=== PATIENT | male | born 1950 | race Caucasian/White ===

== ENCOUNTER → 2017-02-23 | Outpatient (CLI) | payer OTHER ==
[~2017-02-23] MED LIST: ANDROGEL5 GM TD; ASPIR 8181 MG PO; ATENOLOL 50MG T50 M1 PO; CARDIZEM30 MG PO; CLONIDINE0.1 PO; EFFIENT10 MG PO; ELIQUIS5 MG PO; FARXIGA5 MG PO; FISH OIL 1,001000 MG PO; GLUCOTROL5 MG PO; IRON325 PO; LEVAQUIN 500 M500 M3 PO; LIPITOR10 MG PO; LISINOPRIL10 MG PO; MELATONIN3 MG PO; METFORMIN HCL500 MG PO; PACERONE 200 M200 M1 PO; PLAVIX 75 MG TA75 M1 PO; PRILOSEC 20 MG20 MG PO; PROTONIX40 M1 PO; TRAZODONE HCL50 MG PO; TYLENOL325 MG PO; XARELTO10 MG PO
[2017-02-23 12:21] LABS: ABSOLUTE BASOPHILS 0.1 thou/uL (0.0-0.2); ABSOLUTE EOSINOPHILS 0.2 thou/uL (0.0-0.7); ABSOLUTE LYMPHOCYTES 1.3 thou/uL (0.8-5.3); ABSOLUTE MONOCYTES 0.6 thou/uL (0.0-1.2); ABSOLUTE NEUTROPHILS 2.6 thou/uL (1.6-8.1); BASOPHILS 1.3 %; EOSINOPHILS 4.5 %; HEMATOCRIT 35.9 % (42.0-52.0); HEMOGLOBIN 12.2 gm/dL (14.0-18.0); LYMPHOCYTES 26.7 %; MCH 30.1 pg (26.0-34.0); MCHC 33.9 g/dL (28.0-37.0); MCV 88.7 fL (80.0-100.0); MONOCYTES 12.6 %; MPV 7.7 fl. (7.2-11.1); NUCLEATED RBCS 0 /100WBC; PLATELET COUNT* 147 thou/uL (150-400); POLYS 54.9 %; RBC 4.04 mil/uL (4.50-6.00); WBC 4.7 thou/uL (4.0-11.0)
[2017-02-23 12:32] LABS: ALBUMIN 3.5 g/dL (3.4-5.0); CREATININE 0.9 mg/dL (0.6-1.3); POTASSIUM 4.4 mmol/L (3.5-5.1); TOTAL BILIRUBIN 0.5 mg/dL (<0.1-1.0); TOTAL PROTEIN 6.8 g/dL (6.4-8.2)
[2017-02-23 13:23] LABS: ESR (SEDRATE) 25 mm/hr (0-20)
== END ==
LOC: M.LAB 12:04
PROVIDERS: Internal Medicine Gastroenterology
DX: R79.89 Other specified abnormal findings of blood chemistry (principal); F10.10 Alcohol abuse, uncomplicated; I65.23 Occlusion and stenosis of bilateral carotid arteries; I48.0 Paroxysmal atrial fibrillation; E11.9 Type 2 diabetes mellitus without complications; I10 Essential (primary) hypertension; I25.10 Atherosclerotic heart disease of native coronary artery without angina pectoris; E78.00 Pure hypercholesterolemia, unspecified; E66.3 Overweight; Z68.33 Body mass index [BMI] 33.0-33.9, adult; Z86.010 Personal history of colon polyps

== ENCOUNTER 2017-05-06 13:04 | Inpatient (IN) | payer OTHER ==
[~2017-05-06] VITALS: Ht 165.1 cm; Wt 95.3 kg
[~2017-05-06 13:04] MED LIST changes: -CARDIZEM30 MG PO; -ELIQUIS5 MG PO; -FARXIGA5 MG PO; -GLUCOTROL5 MG PO; -LEVAQUIN 500 M500 M3 PO; -PACERONE 200 M200 M1 PO; -TYLENOL325 MG PO; -XARELTO10 MG PO
[2017-05-06 13:06] VITALS: BP 0/0
--- NOTE | 2017-05-06 13:26 | NUR ---
ACCUCHECK = 249. NOTIFIED RN
[2017-05-06 13:44] LABS: PCO2 32.2 mmHg (35.0-45.0); PO2 99.4 mmHg (75.0-100.0)
[2017-05-06 13:45] LABS: HCO3 7.3 mmol/L (22.0-26.0); pH 6.975 (7.340-7.450)
[2017-05-06 13:55] LABS: ABSOLUTE BASOPHILS 0.2 thou/uL (0.0-0.2); ABSOLUTE EOSINOPHILS 0.1 thou/uL (0.0-0.7); ABSOLUTE LYMPHOCYTES 2.9 thou/uL (0.8-5.3); ABSOLUTE MONOCYTES 1.2 thou/uL (0.0-1.2); ABSOLUTE NEUTROPHILS 10.1 thou/uL (1.6-8.1); BASOPHILS 1.1 %; EOSINOPHILS 0.5 %; HEMATOCRIT 27.3 % (42.0-52.0); HEMOGLOBIN 8.1 gm/dL (14.0-18.0); LYMPHOCYTES 19.9 %; MCH 29.2 pg (26.0-34.0); MCHC 29.5 g/dL (28.0-37.0); MCV 99.2 fL (80.0-100.0); MONOCYTES 8.2 %; NUCLEATED RBCS 0 /100WBC; PLATELET COUNT* 196 thou/uL (150-400); POLYS 70.3 %; RBC 2.76 mil/uL (4.50-6.00); WBC 14.3 thou/uL (4.0-11.0)
[2017-05-06 14:03] LABS: APTT 34.7 Seconds (25.0-31.3); INR 1.8; PROTIME 17.4 Seconds (9.20-11.50)
[2017-05-06 14:05] LABS: ANION GAP 27 mmol/L (7-16); BUN 85 mg/dL (7-18); CALCIUM 7.7 mg/dL (8.5-10.1); CHLORIDE 101 mmol/L (98-107); CREATININE 4.2 mg/dL (0.6-1.3); GLUCOSE 278 mg/dL (70-99); POTASSIUM 5.2 mmol/L (3.5-5.1); SODIUM 137 mmol/L (136-145)
[2017-05-06 14:08] LABS: CO2 9 mmol/L (21-32)
[2017-05-06 14:11] LABS: ALBUMIN 2.7 g/dL (3.4-5.0); ALKALINE PHOSPHATASE 150 U/L (46-116); CHOLESTEROL 77 mg/dL (<200); HDL CHOLESTEROL 18 mg/dL (>40); LDL CHOLESTEROL 42 mg/dL (<100); MAGNESIUM 1.9 mg/dL (1.8-2.4); SGOT 57 U/L (15-37); SGPT 108 U/L (30-65); TC:HDL 4.3 Ratio (Not establshd); TOTAL BILIRUBIN 1.3 mg/dL (<0.1-1.0); TOTAL PROTEIN 5.4 g/dL (6.4-8.2); TRIGLYCERIDE 88 mg/dL (<150); TROPONIN-I LEVEL <0.06 ng/mL (<0.06); VLDL 18 mg/dL (<40)
--- NOTE | 2017-05-06 14:12 | NUR ---
SEE CODE BLUE SHEET FOR ACCURATE IV ADMINISTRATION TIMES, NURSING INTERVENTIONS, VITAL SIGNS, PLACEMENT OF CATHETER, OG TUBE, RESTRAINTS, ET TUBE, IV/IO SITES. PT LEFT TO GO TO [employer] [facility] [employer] AT 1408, ESCORTED BY 3 RN'S. FAMILY NOTIFIED, AND ALL PAPERWORK WENT W/ PT. PT ON VENTILATOR.
[2017-05-06 14:13] LABS: SERUM ASSESSMENT Clear
[2017-05-06 14:16] VITALS: BP 112/37
--- NOTE | 2017-05-06 14:18 | NUR ---
VERBAL ORDERS FOR MORPHINE 2 MG WERE GIVEN TO ADMINISTER TO PT. AFTER ADMINISTRATION OF MORPHINE FAMILY STATED THE PT IS ALLERGIC TO MORPHINE. PT STATES THAT THE ALLERGIC REACTION IS THAT THE PT IS HARD TO WAKE UP. PHYSICIAN NOTIFIED.
[2017-05-06 14:53] LABS: BE -17.6 mmol/L (-2 to +3)
[2017-05-06 14:55] LABS: pH 7.263 (7.340-7.450)
[2017-05-06 14:56] LABS: HCO3 7.6 mmol/L (22.0-26.0); PCO2 17.3 mmHg (35.0-45.0); PO2 207.5 mmHg (75.0-100.0)
[2017-05-06 16:13] LABS: BE -12.7 mmol/L (-2 to +3); HCO3 12.1 mmol/L (22.0-26.0); PCO2 24.2 mmHg (35.0-45.0); PO2 173.5 mmHg (75.0-100.0); pH 7.316 (7.340-7.450)
--- NOTE | 2017-05-06 16:25 | NUR ---
NOTIFIED [facility]. RECEIVED ORDERS TO EXTUBATE PT. TITRATE TO NC KEEP NC >90. KEEP HOB AT 30 DEGREES.
[2017-05-06 16:55] LABS: URINE BILIRUBIN NEGATIVE (Negative); URINE BLOOD 3+ (Negative); URINE CLARITY CLEAR; URINE COLOR YELLOW; URINE GLUCOSE-RANDOM NEGATIVE (Negative); URINE KETONES NEGATIVE (Negative); URINE LEUKOCYTES-REFLEX TRACE (Negative); URINE NITRITE-REFLEX NEGATIVE (Negative); URINE PROTEIN 3+ (Negative); URINE SPECIFIC GRAVITY >= 1.030 (1.005-1.030); URINE UROBILINOGEN 0.2 E.U./dl (0.2-1.0)
[2017-05-06 16:58] LABS: BACTERIA-REFLEX None Seen /HPF (None Seen); CASTS None Seen /LPF (None Seen); CRYSTALS None Seen /LPF (None Seen); SQUAMOUS 4-10 Moderate /LPF (0-3); URINE RBC 3-10 Few /HPF (0-2); URINE WBC-REFLEX 0-5 Rare /HPF (0-5)
--- NOTE | 2017-05-06 18:00 | NUR ---
PT PASSED SWALLOW TEST. PT PLACED ON CLEARS AND ADVANCE TOLERATED. BP'S STABLE. MAP >60. PT ALERT TO PERSON, PLACE, AND TIME. PT CONFUSED. FORGETFUL. PULLING AT CORDS, RE-DIRECTABLE. URINE AND MRSA SAMPLE COLLECTED AND SENT TO PHARMACY. CRITICAL LACTIC CALLED TO NO ORDERS RECEIVED.
[2017-05-06 19:55] LABS: URINE POTASSIUM-RANDOM 66.1 mmol/L
[2017-05-06 20:15] VITALS: BP 98/73
[2017-05-06 21:15] VITALS: BP 112/43; BP 98/73
--- NOTE | 2017-05-06 21:30 | NUR ---
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 WILL CONTINUE TO MONITOR.
[2017-05-06 22:15] VITALS: BP 97/43
[2017-05-06 23:00] VITALS: BP 103/49
[2017-05-07] VITALS (18 sets, daily range): BP systolic 88–134; BP diastolic 35–69
--- NOTE | 2017-05-07 00:02 | NUR ---
REPORT GIVEN TO STAR AT THIS TIME, PT AWAKE, ALERT, CONVERSATIVE, DENIES PAIN OR DISCOMFORT, REMAINS NSR TRACING CAPTAIN/CHECK AIRMAN, MIDLINE DRESSING ABD REMAINS C/D/I, DENIES NEEDS AT PRESENT TIME, CALL LIGHT REMAINS IN REACH, BED REMAINS IN LOW AND LOCKED POSITON.
--- NOTE | 2017-05-07 01:16 | NUR ---
PT REMAINS ON CLEAR LIQUID DIET, ONLY CONSUMED SIPS H20 AT HS, DECREASED INSULIN SQ SS FROM MODERATE DOSE TO LOW DOSE REGIME, FSBS 212 AT THIS TIME.
[2017-05-07 04:31] LABS: HEMATOCRIT 23.5 % (42.0-52.0); HEMOGLOBIN 7.7 gm/dL (14.0-18.0); MCH 28.7 pg (26.0-34.0); MCHC 32.7 g/dL (28.0-37.0); NUCLEATED RBCS 0 /100WBC; PLATELET COUNT* 165 thou/uL (150-400); RBC 2.67 mil/uL (4.50-6.00); WBC 11.1 thou/uL (4.0-11.0)
[2017-05-07 04:46] LABS: ALBUMIN 2.6 g/dL (3.4-5.0); CALCIUM 7.6 mg/dL (8.5-10.1); MAGNESIUM 1.4 mg/dL (1.8-2.4); POTASSIUM 4.9 mmol/L (3.5-5.1); TOTAL BILIRUBIN 1.1 mg/dL (<0.1-1.0); TOTAL PROTEIN 5.2 g/dL (6.4-8.2)
[2017-05-07 04:49] LABS: CREATININE 3.2 mg/dL (0.6-1.3)
[2017-05-07 04:57] LABS: MCV 87.8 fL (80.0-100.0)
[2017-05-07 06:08] LABS: ABSOLUTE LYMPHOCYTES 0.6 thou/uL (0.8-5.3); ABSOLUTE MONOCYTES 0.2 thou/uL (0.0-1.2); ABSOLUTE NEUTROPHILS 10.3 thou/uL (1.6-8.1); ANISOCYTOSIS 1+; HYPOCHROMASIA 1+; PLATELET ESTIMATE ADEQUATE; POLYCHROMASIA Occasional
[2017-05-07 06:09] LABS: POIKILOCYTOSIS 1+
[2017-05-07 06:50] LABS: BE -2.4 mmol/L (-2 to +3); HCO3 20.3 mmol/L (22.0-26.0); PO2 94.6 mmHg (75.0-100.0); pH 7.494 (7.340-7.450)
--- NOTE | 2017-05-07 06:50 | NUR ---
PROGRESSING TOWARDS GOALS, REMAINS ALERT AND ORIENTED TO PERSON/PLACE WITH INTERMITTENT CONFUSION TO TIME AND SITUATION, AND FORGETFUL, REMAINS ON 5L OXYGEN PER NC WITHOUT S/S OF RESPIRATORY DISTRESS, VPACED 100 PERCENT CAPTURE, REMAINS ON TEMPORARY PACEMAKER BPM-70 WITH MA 5, DENIES PAIN OR DISCOMFORT, NS 125CC/HR VIA INFUSION PUMP PER ORDER, FREQUENT REMINDERS NEEDED TO KEEP RIGHT LEG STRAIGHT PER TEMPORARY PACEMAKER PROTOCOL, MUMBLED SPEECH AT TIMES, AWAKE, ALERT, WATCHING TV THIS AM, CALL LIGHT REMAINS IN REACH, BED REMAINS IN LOW AND LOCKED POSITION.
--- NOTE | 2017-05-07 10:31 | NUR ---
PATIENT DENIES PAIN OR SOA. PACER DCD ARTERIAL AND VENOUS SHEATHS REMOVED. TYAKING PO WELL. PATIENT SOMEWHAT LETHARGIC NSR BP WNL.
--- NOTE | 2017-05-07 11:54 | CARD ---
[address] [address] CARDIAC CATH REPORT Name: ANUP GALVEZ Room: [address] IN ..#: [id number] Admission: 05/06/17 Attend Phys: Mihir Rm MD Discharge: Date of : 46 Report #: [id number] THIS REPORT FOR: //name// APPROVED REPORT Study performed: 05/06/2017 13:43:55 Patient Status: ED Room #: Event Personnel: Gerald Queen Recreational Therapy Aide, Kezia Patrick RN Monitor,Mihir Esparza Evinger, Makenzie RN RN Exam: Insertion of Temporary Pacemaker Indications: Sick Sinus Syndrome/Tachy Andi Syndrome The patient is a 66 year-old male with a history of Syncope. Procedure The patient underwent informed consent. We discussed the details of the procedure including the risks, which include, but not limited to bleeding, infection, vascular damage, cardiac perforation, and pneumothorax. The patient was brought urgently from the ED after syncope and a sinus pause. The patient had been intubated and was being externally paced. A 6 cymraes sheath was placed in the right femoral artery and vein. A 5 cymraes pacing lead was inserted through the venous sheath and guided into the right ventricular apex. Electrode Parameters Ventricular Threshold: 1.0 mA Temporary pacer was set at rate 80bpm. Complications The patient tolerated the procedure well and there were no complications associated with the procedure. Findings Specimens Removed: No Estimated Blood Loss: 10cc Conclusion 1. placement of an arterial sheath in the right [place] [address] CARDIAC CATH REPORT Name: LENNYANUP Yosef Room: [address] IN [facility].#: [id number] Admission: 05/06/17 Attend Phys: Mihir Rm MD Discharge: Date of : 46 Report #: [id number] 2. placement of a temporary pacing lead through the right femoral vein <ELECTRONICALLY SIGNED> By: Gerald Queen MD, FACC 05/07/17 1154 1154 [id number] nena Queen MD, FACC /INF
--- NOTE | 2017-05-07 12:16 | EKG ---
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 : 1950 Requested By: Oscar Smith Order Number: [id number] MD: Gerald Queen Measurements Intervals [place] Rate: 86 P: MD: QRS: 104 QRSD: 183 T: -47 QT: 488 QTc: 584 Interpretive Statements accelerated junctional rhythm Ventricular premature complex RBBB and LPFB ST depr, consider ischemia, inferior leads Compared to ECG 09/25/2015 07:41:12 Ventricular premature complex(es) now present Left posterior fascicular block now present Right bundle-branch block now present Possible ischemia still present Electronically Signed On 05-07-2017 12:15:58 CDT by Gerald Queen [email or web address] <ELECTRONICALLY SIGNED> By: Gerald Queen MD, FACC 05/07/17 1215 1313 1313 Gerald Queen MD, FACC /EPI
[2017-05-07 13:41] LABS: SMEAR FOR EOSINOPHILS Rare per HPF
--- NOTE | 2017-05-07 14:37 | 2DMMODE ---
[place] [address] 2 D/M-MODE ECHOCARDIOGRAM Name: ANUP GALVEZ Room: [address] IN [facility]#: [id number] Admission: 05/06/17 Attend Phys: Mihir Rm, Discharge: Date of : 46 Date of Service: 05/07/17 1437 Report #: [id number] THIS REPORT FOR: //name// APPROVED REPORT Study performed: 05/07/2017 11:20:24 EXAM: Comprehensive 2D, Doppler, and color-flow Echocardiogram Patient Location: In-Patient Room #: [facility] BSA: 2.13 HR: 73 bpm BP: 121/35 mmHg Other Information Study Quality: Technically Difficult Indications S/P Aortic Valve replacement 2D Dimensions LVEF(%): 58.25 (>50%) IVSd: 13.97 (7-11mm) LVOT Diam: 20.28 (18-24mm) LVDd: 41.85 mm PWd: 13.48 (7-11mm) Ascending Ao: 25.11 (22-36mm) LVDs: 29.11 (25-40mm) Aortic Root: 22.69 mm Traylor's LVEF: 58.25 % Volumes Left Atrial Volume (Systole) LA ESV Index: 27.50 mL/m2 Aortic Valve AoV Peak Adrian.: 2.22 m/s AO Peak Gr.: 19.79 mmHg LVOT Max P.56 mmHg AO Mean Gr.: 12.00 mmHg LVOT Mean P.45 mmHg LVOT Max V: 1.07 m/s AO V2 VTI: 36.65 cm LVOT Mean V: 0.74 m/s ONELIA (VTI): 1.71 cm2 LVOT V1 VTI: 19.36 cm Mitral Valve E/A Ratio: 1.83 MV Decel. Time: 192.69 [place] [address] 2 D/M-MODE ECHOCARDIOGRAM Name: ANUP GALVEZ Room: [address] IN ..#: [id number] Admission: 05/06/17 Attend Phys: Mihir Rm, Discharge: Date of : 46 Date of Service: 05/07/17 1437 Report #: [id number] MV E Max Adrian.: 1.15 m/s MV PHT: 55.88 ms MVA (PHT): 3.94 cm2 TDI E/Lateral E': 12.78 E/Medial E': 16.43 Medial E' Adrian.: 0.07 m/s Lateral E' Adrian.: 0.09 m/s Pulmonary Valve PV Peak Adrian.: 1.62 m/s PV Peak Gr.: 10.53 mmHg Tricuspid Valve TR Peak Gr.: 31.43 mmHg RVSP: 36.43 mmHg Left Ventricle The left ventricle is normal size. There is normal LV segmental wall motion. Mild concentric left ventricular hypertrophy. Left ventricular systolic function is normal. The left ventricular ejection fraction is within the normal range. LVEF is 55-60%. The left ventricular diastolic function is normal. Right Ventricle The right ventricle is normal size. The right ventricular systolic function is normal. Atria The left atrium size is normal. The right atrium size is normal. Aortic Valve Bioprosthetic aortic valve is present. No aortic regurgitation is present. There is no aortic valvular stenosis. Mitral Valve There is mild mitral annular calcification. Mild mitral regurgitation. No evidence of mitral valve stenosis. Tricuspid Valve The tricuspid valve is normal in structure. Trace tricuspid regurgitation. estimated pa pressure 40 mm Hg Pulmonic Valve The pulmonary valve is normal in structure. There is no pulmonic [place] [address] 2 D/M-MODE ECHOCARDIOGRAM Name: ANUP GALVEZ Room: [address] IN [facility]#: [id number] Admission: 05/06/17 Attend Phys: Mihir Rm, Discharge: Date of : 46 Date of Service: 05/07/17 1437 Report #: [id number] Great Vessels The aortic root is normal in size. IVC is normal in size and collapses with >50% inspiration Pericardium There is no pericardial effusion. <Conclusion> Mild concentric left ventricular hypertrophy. LVEF is 55-60%. Bioprosthetic aortic valve is present. Mild mitral regurgitation. Trace tricuspid regurgitation. estimated pa pressure 40 mm Hg <ELECTRONICALLY SIGNED> By: Gerald Queen MD, FACC 05/07/17 1437 1437 143 Gerald Queen MD, FACC /INF
--- NOTE | 2017-05-07 17:47 | CON ---
[facility] [address] [place] [address] CONSULTATION Name: LENNYANUP Yosef Room: [address] IN M.R.#: [id number] Admission: 05/06/17 Attend Phys: Mihir Rm MD Discharge: Date of : 46 Report #: [id number] THIS REPORT FOR: //name// CC: Mihir Zhao MD DATE OF SERVICE: 05/06/2017 TYPE OF REPORT: Cardiology consultation. PRIMARY CARE PHYSICIAN: Dash Zhao M.D. at [place], [place]. HISTORY OF PRESENT ILLNESS: The patient is a 66-year-old white male who I was asked to see in the hospital today after he apparently suffered a cardiac arrest. The history is obtained from some old records as well as the who was present. The patient is currently intubated. The patient has a long history of heart disease. He has been cared for by Dr. Nicholson for years. He has had multiple coronary artery stents placed. Apparently, his first stent was actually placed at [facility]. He has had many stents here at [facility]. His last stent was apparently several years ago. He continues to follow Dr. Nicholson who now practices at [facility]. He does have a history of aortic stenosis and had an echocardiogram here at [facility] in August 2016 that showed a normal ejection fraction with moderate aortic stenosis. Recently, the patient has been having chest pain and shortness of breath. He underwent a repeat cardiac catheterization in [facility]. Dr. Nicholson recommended aortic valve replacement and coronary artery bypass surgery. Apparently on April 23, he underwent aortic valve replacement using a tissue valve and 2-vessel bypass surgery using vein graft at [facility]. His postoperative course apparently was complicated by renal failure and he required temporary dialysis. The patient does have a history of atrial flutter and apparently was sent home with a pvc monitor. Recently, he has noticed palpitations and his heart racing. The patient was finally discharged from [facility] 4 days ago. According to family members, since he was discharged, he has been very weak. He has also had loose stools. His blood sugars have been high. During the night, the family got him up to the bathroom this morning. He was so weak they could even get him to the bathroom and had lowered him to the ground in the living room. The ambulance was called and he was brought here to [facility]. The patient apparently denied any significant chest pain, shortness of breath and he did not have syncope. When paramedics arrived, he was bradycardic with a heart rate in the 30s. While transferring him to the ambulance, the patient apparently went asystolic and CPR was initiated. He was given epinephrine. When arrived to the Emergency Room here at [facility], CPR was in progress. In the Emergency Room here, he was given epinephrine and atropine. He was intubated to protect his airway. A rhythm was obtained and the patient then awakened. However, he was having bradycardia and [place] [address] CONSULTATION Name: ANUP GALVEZ Room: [address] IN [facility]#: [id number] Admission: 05/06/17 Attend Phys: Mihir Rm MD Discharge: Date of : 46 Report #: [id number] was asked to see him on an emergent basis. The family denied any significant fever, cough or bleeding since he was discharged 5 days ago. PAST MEDICAL HISTORY: Otherwise significant for repair of a ruptured quadriceps muscle and ankle fracture. He has had a history of GI bleeding, which required a transfusion in the past. He has had colon polyps removed. He has had a previous peptic ulcer. He has a history of hypertension, diabetes and history of atrial flutter. MEDICATIONS: The patient was discharged 4 days ago from [facility] on amiodarone 200 mg twice day, which is a new medication. He is on diltiazem CD 60 mg 4 times a day, potassium 10 mEq twice a day and Lasix 20 mg twice a day. He was recently started on metoprolol 100 mg twice a day, aspirin 325 mg a day, iron supplements, fish oil, glipizide, metformin, Protonix and trazodone for sleep. ALLERGIES: He has a previous intolerance to MORPHINE. FAMILY HISTORY: His father had heart disease. SOCIAL HISTORY: He is . He and his live in [place]. 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 No smoking. Has drunk alcohol heavily in the past including going to [employer]. REVIEW OF SYSTEMS: He has had no history of stroke or asthma. He does have a history of bleeding peptic ulcer in the past. He has had chronic kidney disease. No cancer. No psychiatric illness. PHYSICAL EXAMINATION: GENERAL: Revealed a middle-aged male who was lying on a stretcher. He was intubated. He was awake. VITAL SIGNS: He currently has a blood pressure of 100. He is being externally paced at 80. HEENT: Mucous members moist. He is anicteric. Conjunctivae pink. NECK: Veins are difficult to assess due to obesity. CHEST: Clear to auscultation. CARDIAC: Regular rate and rhythm. Grade 2 systolic ejection murmur. ABDOMEN: Soft. EXTREMITIES: Difficult to assess. He had wrappings on both the legs. RADIOLOGICAL DATA: His ECG when he arrived in the Emergency Room appeared to show a sinus rhythm with frequent PVCs, left posterior fascicular block and a right bundle-branch block. His chest x-ray, mild cardiomegaly, otherwise clear lung cannon, evidence of previous sternotomy and aortic valve replacement. LABORATORY DATA: Sodium 137, potassium is 5.2, BUN 85, creatinine 4.[address] [facility] [address] [place] [address] CONSULTATION Name: ANUP GALVEZ Room: [address] IN [facility]#: [id number] Admission: 05/06/17 Attend Phys: Mihir Rm MD Discharge: Date of : 46 Report #: [id number] glucose 278. SGOT 57 and his SGPT 108. Albumin 2.7. His white blood cell count is 14.3; hemoglobin 8.1 and platelet count 196,000. IMPRESSION AND RECOMMENDATIONS: 1. Cardiac arrest secondary to sinus pauses. Suspect sick-sinus syndrome. I would recommend discontinuing amiodarone, diltiazem and metoprolol. We would recommend placing temporary pacemaker. The patient will require permanent pacemaker. 2. History of atrial flutter. I would hold amiodarone at this time. 3. Recent coronary artery bypass surgery. No evidence of ischemia. We will continue an aspirin a day. 4. Recent aortic valve replacement using tissue valve. Recommend echocardiogram. 5. Diabetes. The patient has oral medications. 6. History of hypertension. The patient has been on a calcium anthony and beta anthony. 7. Previous history of alcohol abuse. 8. Previous history of gastrointestinal bleeding from peptic ulcer disease. 9. Anemia. Suspect blood loss following surgery. <ELECTRONICALLY SIGNED> By: Gerald Queen MD, FACC 05/07/17 1747 1536 1920Dawilner Queen MD, FACC /nt
--- NOTE | 2017-05-07 20:06 | NUR ---
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
--- NOTE | 2017-05-08 04:27 | NUR ---
PT RESTING QUIELTY WITH EYES CLOSED, BEGINNING SHIFT WAS NSR TRACING GROCERY SPECIALIST, NOTED HR INCREASING 120'S UP TO 150'S AFIB SUBSTAINED, AWOKE PT FOR ASSESSMENT, PT DENIED CP, DISCOMFORT, SOA, SKIN REMAINS WARM, DRY, AND INTACT, DENIED DIZZYNESS, OR PALPITATIONS, ORDERED STAT EKG, PT HR REVERTED BACK TO NSR WITH HR 70'S TO 80'S BEFORE EKG WAS OBTAINED, EKG ON HOLD AT PRESENT TIME, WILL OBTAIN FOR CHANGE IN CARDIAC RHYTHEM OR CHEST DISCOMFORT.
[2017-05-08 05:34] LABS: CALCIUM 7.9 mg/dL (8.5-10.1); POTASSIUM 4.1 mmol/L (3.5-5.1)
[2017-05-08 05:42] LABS: % SATURATION 9 % (20-39); IRON 30 ug/dL (50-175)
[2017-05-08 05:43] LABS: HEMATOCRIT 21.7 % (42.0-52.0); HEMOGLOBIN 7.2 gm/dL (14.0-18.0)
[2017-05-08 05:48] LABS: CREATININE 1.8 mg/dL (0.6-1.3)
--- NOTE | 2017-05-08 06:30 | NUR ---
REMAINS ON 2L PER NC, NO SOA OR DIFFICULTY BREATHING DURING NOC, NO FURTHER EPISODES AFIB OR RAPID HEART RATE AFTER 0400 THIS AM, DENIES PAIN OR DISCOMFORT, RESTING QUIELTY WITH EYES CLOSED MOST OF NOC, VOIDING PER URINAL, USING CALL LIGHT ADEQUATELY, CALL LIGHT REMAINS IN REACH. AWAKE, ALERT, AND CONVERSATIVE THIS AM.
[2017-05-08 07:33] VITALS: BP 128/62
--- NOTE | 2017-05-08 08:39 | NUR ---
PATIENT CARE ASSUMED AT 0700. PATIENT DENIES PAIN, NAUSEA, SOB. REFER TO ASSESSMENT AND VITALS. TRACING NSR ON ROCKET ASSEMBLY OPERATOR. DID HAVE ONE EPISODE OF INCREASED HR OVERNIGHT WHICH SPONTANEOUSLY CONVERTED BEFORE EKG COULD BE COMPLETED PER NOC NURSE. ONLY COMPLAINT THIS MORNING IS FEELING LIKE HE NEEDS TO HAVE A BOWEL MOVEMENT. REMAINS ON 2L WITH O2 SAT 100%, MAY BE TITRATED DOWN. PATIENT DOWNGRADED TO M/S TELE STATUS BY HOSPITALIST. TRANSFERED TO ROOM 309 AT 0830 BY WHEELCHAIR WITH TIMBER TREATING TANK OPERATOR. INSULIN SENT WITH PATIENT.
[2017-05-08 08:46] VITALS: BP 128/61
--- NOTE | 2017-05-08 10:51 | EKG ---
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: MYCHAL : 1950 Requested By: Gerald Queen Order Number: [id number] MD: Gerald Queen Measurements Intervals [place] Rate: 82 P: 69 SC: 167 QRS: -6 QRSD: 152 T: 172 QT: 414 QTc: 484 Interpretive Statements Sinus rhythm Left bundle branch block Compared to ECG 05/06/2017 13:13:10 Left bundle-branch block now present Accelerated junctional rhythm no longer present Ventricular premature complex(es) no longer present Left posterior fascicular block no longer present Right bundle-branch block no longer present Possible ischemia no longer present Electronically Signed On 05-08-2017 10:51:07 CDT by Gerald Queen [email or web address] <ELECTRONICALLY SIGNED> By: Gerald Queen MD, FACC 05/08/17 1051 1 1 Gerald Queen MD, FAC /EPI
[2017-05-08 12:01] VITALS: BP 132/64
[2017-05-08 15:35] VITALS: BP 127/51
--- NOTE | 2017-05-08 16:19 | NUR ---
PATIENT TRANSFERED FROM ICU, REPORT TAKEN FROM LYNDSAY, AGREE WITH ASSESMENT. ARRIVED ON FLOOR AT 0830, ORIENTED TO ROOM, ALL BELONGINGS WITH IN REACH, CALL LIGHT AT BEDSIDE. A&OX4, FORGETFUL ON 2L O2 VAI NC, IV RIGHT AC. NO C/O PAIN/N/V. UP WITH ASSISTX1 WITH A WALKER. BLE EDEMA. CONCERNED WITH PLAN OF CARE, REASSURED. NO OTHER CONCERNS AT THIS TIME. APPROPRIATE AND COOPORATIVE WITH CARE.
[2017-05-08 23:40] VITALS: BP 132/61
[2017-05-09] VITALS (12 sets, daily range): BP systolic 121–138; BP diastolic 48–70
[2017-05-09 04:54] LABS: HEMATOCRIT 21.8 % (42.0-52.0); HEMOGLOBIN 7.2 gm/dL (14.0-18.0); MCH 29.1 pg (26.0-34.0); MCHC 33.2 g/dL (28.0-37.0); MCV 87.8 fL (80.0-100.0); MPV 8.3 fl. (7.2-11.1); RBC 2.48 mil/uL (4.50-6.00); RDW-CV 16.6 % (10.5-14.5); WBC 4.9 thou/uL (4.0-11.0)
[2017-05-09 05:00] LABS: CALCIUM 8.1 mg/dL (8.5-10.1); CREATININE 1.3 mg/dL (0.6-1.3); MAGNESIUM 1.5 mg/dL (1.8-2.4); POTASSIUM 4.5 mmol/L (3.5-5.1)
--- NOTE | 2017-05-09 05:58 | NUR ---
PATIENT SLEPT PART OF THE NIGHT. IV REMAINS SALINE LOCKED. PATIENT WAS SATTING 100% ON 2L SO OXYGEN WAS PLACED TO STANDBY PATIENT HAS BEEN 97% ON ROOM AIR. PATIENT REMAINS ON SHOP DIRECTOR. PATIENT IS WANTING TO GO HOME TODAY. WILL CONTINUE TO MONITOR.
[2017-05-09 09:09] LABS: IgA 239 mg/dL (61-437); IgG 509 mg/dL (700-1600); IgM 51 mg/dL (20-172)
--- NOTE | 2017-05-09 10:06 | EKG ---
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
--- NOTE | 2017-05-09 10:33 | NUR ---
PATIENT A&OX4, ROOM AIR, IV RIGHT AC. UP WITH ASSISTX1 WITH WALKER, STEADY GAIT. NO C/O PAIN/N/V. PATIENT NOTED TO BE IN V-TACH FOR 2 MIN. ARIVED IN ROOM, PATIENT STANDING IN ROOM, ALERT, ASYMPTOMATIC, STATES WALKED AROUND ROOM. RHYTHM CHANGE TO NS WITH RVR. PHYSICIAN NOTIFIED AND AT BEDSIDE. CARDIOLOGY NOTIFIED NEW ORDERS AND TO TRANSFER PATIENT TO ICU. CALLED AND GAVE REPORT. PATIENT LEFT UNIT AT 1025, WITH ALL BELONGIGNS, NOTHING LEFT BEHIND.
--- NOTE | 2017-05-09 11:02 | NUR ---
ASSUMED CARE OF PATIENT ALERT AND ORIENTED DENIES CP OR SOA.
[2017-05-09 16:11] LABS: KAPPA FREE LIGHT CHAINS 18.3 mg/L (3.3-19.4); LAMBDA FREE LIGHT CHAINS 18.9 mg/L (5.7-26.3)
--- NOTE | 2017-05-09 18:22 | NUR ---
PATIENT REMAINS IN NSR DENIES CHEST PAIN OR SOA. TAKING PO WELL. UP IN CHAIR.
--- NOTE | 2017-05-09 22:43 | NUR ---
INITAL ASSESSMENT COMPLETED AT 1999. AT 2220 PT SITTING IN CHAIR. HEART RATE INCREASED TO 140'S. MONITOR SHOWS ATRIAL FIB. PAGED DR GRACE AND RECIEVED ORDER FOR XAVIER AMBROCIO.
--- NOTE | 2017-05-09 23:35 | NUR ---
CARDIZEM DRIP STARTED AT 5 MG/HR FOR TREATMENT OF AFIB/RVR.
[2017-05-10] VITALS (13 sets, daily range): BP systolic 109–146; BP diastolic 49–86
[2017-05-10 05:00] LABS: CALCIUM 7.9 mg/dL (8.5-10.1); CREATININE 1.1 mg/dL (0.6-1.3); MAGNESIUM 1.3 mg/dL (1.8-2.4); POTASSIUM 4.2 mmol/L (3.5-5.1)
--- NOTE | 2017-05-10 09:47 | EKG ---
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: : 1950 Requested By: Gerald Queen Order Number: [id number] MD: Gerald Queen Measurements Intervals [place] Rate: 119 P: 90 [place]: 71 QRS: -8 QRSD: 159 T: 182 QT: 398 QTc: 561 Interpretive Statements wide complex tachycardia Left bundle branch block Baseline wander in lead(s) I,II,aVR,aVF,V1,V2,V3,V4,V5 Compared to ECG 05/09/2017 08:26:44 Sinus rhythm no longer present Electronically Signed On 05-10-2017 9:47:01 CDT by Gerald Queen [email or web address] <ELECTRONICALLY SIGNED> By: Gerald Queen MD, FAC 05/10/17 0947 0752 0752 Gerald Queen MD, [facility] /EPI
--- NOTE | 2017-05-10 18:37 | NUR ---
ASSESSMENT COMPLETED REFER TO COMPUTER CHARTING. POT SANDER TRACKING AFIB/ ST/ SR THIS SHIFT. BED IN LOW AND LOCKED POSITION. CALL LIGHT WITHIN REACH. PATIENT UP WITH ASSISTANCE. PATIENT REPORTING NO PAIN, NAUSEA OR SHORTNESS OF BREATH. IV SALINE LOCKED. PATIENT ON ROOM AIR. WILL CONTINUE TO MONITOR THIS SHIFT.
--- NOTE | 2017-05-10 19:21 | NUR ---
PATIENT INTO AFIB WITH A RATE OF 120'S AT 1700. DR RODRÍGUEZ NOTIFIED WITH NEW ORDERS. PATIENT NPO FOR PROCEDURE IN AM. PATIENT HR BACK DOWN TO 70'S AT THIS TIME. WILL CONTINUE TO MONITOR.
[2017-05-11] VITALS (10 sets, daily range): BP systolic 92–139; BP diastolic 52–75
[2017-05-11 04:47] LABS: ABSOLUTE EOSINOPHILS 0.2 thou/uL (0.0-0.7); ABSOLUTE LYMPHOCYTES 0.8 thou/uL (0.8-5.3); ABSOLUTE MONOCYTES 0.7 thou/uL (0.0-1.2); ABSOLUTE NEUTROPHILS 3.5 thou/uL (1.6-8.1); BASOPHILS 0.9 %; EOSINOPHILS 3.7 %; HEMATOCRIT 22.4 % (42.0-52.0); HEMOGLOBIN 7.4 gm/dL (14.0-18.0); LYMPHOCYTES 14.5 %; MCH 29.1 pg (26.0-34.0); MCHC 33.2 g/dL (28.0-37.0); MCV 87.6 fL (80.0-100.0); MONOCYTES 13.3 %; NUCLEATED RBCS 0 /100WBC; PLATELET COUNT* 142 thou/uL (150-400); POLYS 67.6 %; RBC 2.56 mil/uL (4.50-6.00); RDW-CV 16.5 % (10.5-14.5); WBC 5.2 thou/uL (4.0-11.0)
[2017-05-11 04:52] LABS: ALBUMIN 2.5 g/dL (3.4-5.0); CREATININE 1.1 mg/dL (0.6-1.3); POTASSIUM 4.1 mmol/L (3.5-5.1); TOTAL BILIRUBIN 0.9 mg/dL (<0.1-1.0); TOTAL PROTEIN 5.4 g/dL (6.4-8.2)
--- NOTE | 2017-05-11 06:38 | NUR ---
PATIENT PROGRESSING TOWARDS GOALS. PT OFF CARDIZEM GTT. IN BBB HR 68. PT ABLE TO SLEEP OVER NIGHT. URINE OUTPUT ADEQUATE. BP ON THE SOFT SIDE ASYMPTOMATIC. REMAINS NPO. PT HAS NO VOICED CONCERNS AT THIS TIME. CALL LIGHT IN PLACE. BED TO LOWEST POSITION. WILL CONTINUE TO MONITOR CLOSELY.
[2017-05-11 08:43] LABS: CALCIUM 8.1 mg/dL (8.5-10.1); CREATININE 1.2 mg/dL (0.6-1.3); POTASSIUM 4.2 mmol/L (3.5-5.1)
--- NOTE | 2017-05-11 12:41 | NUR ---
SPOKE WITH PT YESTERDAY. PT LIVES AT HOME WITH HIS AND ADULT SON. HE HAD CABG ON 04/23 AT [place]. HE SAID THEY OFFERED HOME HEALTH AT DISCHARGE BUT HE DIDN'T THINK HE NEEDED SINCE HE LIVES WITH HIS AND SON AND NORMALLY IS INDEP AND ACTIVE. PT SAID HE JUST KEPT GETTING WEAKER AND WEAKER. PT ADMITTED WITH HR IN 30'S. CARDIOLOGY HAS BEEN ADJUSTING HIS MEDS TO KEEP HIM OUT OF A-FIB WITHOUT DROPPING HIS HEARTRATE. PT SAID HE IS FEELING OKAY, JUST FRUSTRATED WITH ALL THE TIME HE HAS BEEN IN THE HOSPITAL THIS MONTH. PT DOESN'T FEEL HE WILL HAVE ANY DISCHARGE NEEDS.
--- NOTE | 2017-05-11 13:58 | EKG ---
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1950 Requested By: Gerald Queen Order Number: [id number] Reading MD: Gerald Queen Measurements Intervals [place] Rate: 73 P: 75 FL: 172 QRS: 20 QRSD: 156 T: 191 QT: 453 QTc: 500 Interpretive Statements Sinus rhythm Left bundle branch block Baseline wander in lead(s) V1 Compared to ECG 05/10/2017 07:52:56 Wide-QRS tachycardia no longer present Electronically Signed On 05-11-2017 13:58:48 CDT by Gerald Queen [email or web address] <ELECTRONICALLY SIGNED> By: Gerald Queen MD, [facility] 05/11/17 1358 0754 [id number] Gerald Queen MD, [facility] /EPI
--- NOTE | 2017-05-11 14:12 | NUR ---
pt transfered to tele status per dr kay. report called to hong quintanilla on tele. u/s still has not done. pt tolerating diet, pt remain is sr with bbb. pt has denies any complaints of chest discomfort.
--- NOTE | 2017-05-11 14:44 | NUR ---
vss, RECIEVED REPORT OF PATIENT FROM ICU NURSE JIN, ASSESSMENT PERFORMED I AGREE WITH ASSESSMENT FINDINGS FRO ICU, FALL PRECAUTIONS IN PLACE PT IS UP AD CHARLI AND DENIES ANY PAIN, PT WANTS TO TAKE A SHOWER, PT IS TRACING SR ON THE MONITOR AND IS ON RA AND IS A&O4. WILL FOLLOW WITH PLAN OF CARE.
--- NOTE | 2017-05-11 18:27 | NUR ---
VSS, NOT STATUS CHANGE AT THIS TIME, PT UP AD CHARLI, ON RA TRACING SR ON THE MONITOR AND DENIES ANY PAIN, WILL FOLLOW WITH PLAN OF CARE,
[2017-05-12] VITALS (7 sets, daily range): BP systolic 121–148; BP diastolic 52–79
--- NOTE | 2017-05-12 07:51 | NUR ---
Pt converted from SR to Afib at 2032; HR 100s-110s at rest, 120s-130s with activity. Asymptomatic, though pt was aware that he was back in Afib. 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 VSS. Pt expressed disappointment as he aniticipates a bruno in getting discharged. Will continue to monitor.
--- NOTE | 2017-05-12 12:39 | EKG ---
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 : 1950 Requested By: Gerald Queen Order Number: [id number] Reading MD: Jean Claude Oconnor Measurements Intervals [place] Rate: 85 P: 65 NV: 175 QRS: -8 QRSD: 161 T: 164 QT: 449 QTc: 534 Interpretive Statements Sinus rhythm Left bundle branch block Compared to ECG 05/11/2017 07:54:57 No significant changes Electronically Signed On 05-12-2017 12:39:12 CDT by Jean Claude Oconnor [email or web address] <ELECTRONICALLY SIGNED> By: Jean Claude Oconnor MD, [facility] 05/12/17 1239 Jean Claude Oconnor MD, FAC /EPI
--- NOTE | 2017-05-12 18:38 | NUR ---
PT UP WALKING IN HALLWAYS, DENIES PAIN OR OTHER DISCOMFORTS. HEART RHYTHM FLUCTUATING BETWEEN SR AND AFIB THIS AM. PT GIVEN ORDERED CARDIZEM AND PT HAS REMAINED SR THIS AFTERNOON. PT DENIED SOA, PAIN OR OTHER DISCOMFORTS. PT ABLE TO MAKE NEEDS KNOWN, CALL LIGHT IN REACH
[2017-05-12 23:07] LABS: GLYCOHEMOGLOBIN (HGB A1C) 6.6 % (4.8-5.6)
[2017-05-13 04:00] VITALS: BP 109/55
[2017-05-13 04:31] LABS: ABSOLUTE BASOPHILS 0.1 thou/uL (0.0-0.2); ABSOLUTE EOSINOPHILS 0.2 thou/uL (0.0-0.7); ABSOLUTE LYMPHOCYTES 0.8 thou/uL (0.8-5.3); ABSOLUTE MONOCYTES 0.8 thou/uL (0.0-1.2); BASOPHILS 1.1 %; EOSINOPHILS 4.9 %; HEMATOCRIT 23.1 % (42.0-52.0); HEMOGLOBIN 7.6 gm/dL (14.0-18.0); MCH 29.4 pg (26.0-34.0); MCHC 32.9 g/dL (28.0-37.0); MCV 89.2 fL (80.0-100.0); MONOCYTES 16.4 %; NUCLEATED RBCS 0 /100WBC; PLATELET COUNT* 129 thou/uL (150-400); POLYS 60.6 %; RBC 2.59 mil/uL (4.50-6.00); RDW-CV 18.1 % (10.5-14.5)
[2017-05-13 04:48] LABS: CREATININE 1.2 mg/dL (0.6-1.3)
--- NOTE | 2017-05-13 05:42 | NUR ---
PT ALERT ORIETNED. UP AD CHARLI IN ROOM. DENIES CP. TELEMETRY SHOWS SR. WILL CONTINUE TO MONITOR.
[2017-05-13 08:00] VITALS: BP 130/48
[2017-05-13 14:40] VITALS: BP 130/48
[2017-05-13] MEDS ORDERED: ASPIR 8181 MG PO (14:56)
[2017-05-13] MEDS ORDERED: PACERONE 200 M200 M1 PO (14:56)
[2017-05-13] MEDS ORDERED: CARDIZEM30 MG PO (14:57)
[2017-05-13] MEDS ORDERED: GLUCOTROL5 MG PO (14:58)
[2017-05-13] MEDS ORDERED: TYLENOL325 MG PO (15:00)
[2017-05-13] MEDS ORDERED: LEVAQUIN 500 M500 M3 PO (15:01)
--- NOTE | 2017-05-13 15:26 | NUR ---
PT DISCHARGED HOME WITH , IV AND BINDERY HELPER REMOVED PRIOR TO DISCHARGE. PT AND VERBALIZED UNDERSTANDING OF DC INSTRUCTIONS. PT TOOK ALL PERSONAL BELONGINGS AND ALL PRESCRIPTIONS AT TIME OF DISCHARGE. PT VSS, NO C/O PAIN OR DISTRESS, SKIN WARM, DRY AND INTACT.
--- NOTE | 2017-05-16 13:49 | CON ---
[address] [address] CONSULTATION Name: ANUP GALVEZ Room: [address] IN ..#: [id number] Admission: 05/06/17 Attend Phys: Mihir Rm MD Discharge: 05/13/17 Date of : 46 Report #: [id number] THIS REPORT FOR: //name// CC: Mihir Hyman Bettie DATE OF SERVICE: 05/07/2017 CONSULTING PHYSICIAN: Dr. Rm. REASON FOR CONSULTATION: Acute renal failure. CHIEF COMPLAINT: The patient was feeling weak and then had a cardiac arrest. HISTORY OF PRESENT ILLNESS: This is a 66-year-old male who has past medical history of coronary artery disease; diabetes type 2, controlled as per the patient; hypertension; recent acute renal failure requiring dialysis x 1 and other medical problems who was brought in to the hospital yesterday after he had a cardiac arrest. Initially, the patient was having increasing weakness at home and so EMS was called at home and he was found to be extremely bradycardic, heart rate was in 30s. Then, he had a cardiac arrest while en route to the hospital, but he had return of spontaneous circulation within a very short period of time. I do not have the exact duration for which he was resuscitated. It seems like he had a cardiac arrest x 2 where he was initially bradycardic and then just became asystolic. He was rushed to the OR to get a temporary pacemaker placed yesterday. His creatinine was 4.2 yesterday and hence Nephrology consult was called and he was started on IV fluids and his creatinine is down to 3.2 today. He did get IV contrast load when he had a pacemaker placed. About 2 weeks ago, he had surgery for a 2-vessel coronary artery bypass and he also had aortic valve replaced, which is a bioprosthetic valve because he had aortic stenosis. After the surgery, the patient reports that he became hypotensive and he had acute kidney injury and they had to, hospital [facility], put him on dialysis, but he only required it for one time. After that, the patient states that he got better and then, he was discharged. His lisinopril, metformin was held on discharge. He has been taking Lasix at home 20 mg b.i.d. and just takes 2 baby aspirins a day at home. He reports no trouble urinating, no history of any kidney stones. His urine output has been good and he has had about 900 mL urine output in the last 24 hours. His beta blockers are on hold. His heart rate is now better. He is just currently feeling very tired, also is complaining of some constipation. REVIEW OF SYSTEMS: Currently, he feels a little bloated, he is asking for food, no trouble urinating, no shortness of breath right now, other review of systems were done and negative. He does have some weakness. PAST MEDICAL HISTORY: That includes history of coronary artery disease, has had [address] [address] CONSULTATION Name: ANUP GALVEZ Room: [address]#: [id number] Admission: 05/06/17 Attend Phys: Mihir Rm MD Discharge: 05/13/17 Date of : 46 Report #: [id number] multiple catheterizations, coronary artery bypass grafts, 2-vessel and aortic valve replacement on 04/23/2017, hypertension, diabetes type 2, history of acute renal failure, history of GI bleed, history of atrial fibrillation, obesity. PAST SURGICAL HISTORY: Which includes a CABG, AVR, multiple cardiac catheterizations, temporary dialysis need for ATN. FAMILY HISTORY: It is not relevant to the current situation, but it was reviewed. ALLERGIES: TO MORPHINE. SOCIAL HISTORY: He lives at home with his . Does use alcohol, no recreational drugs or tobacco. HOME MEDICATIONS: They were reviewed. They include Lasix, pantoprazole, melatonin, clonidine, omeprazole, ferrous sulfate, atenolol, atorvastatin, trazodone, testosterone. PHYSICAL EXAMINATION: VITAL SIGNS: Blood pressure is 121/35. Pulse ox is 96% on 2 L nasal cannula and respiratory rate is 16, pulse rate is 73, and temperature 36.7. GENERAL: He is awake and oriented, just feeling very weak and hungry. HEAD, EYES, EARS, NOSE, THROAT: Mucous membranes were dry. NECK: No JVD. CHEST: Bilateral diminished breath sounds and no crackles or wheezing. CARDIOVASCULAR: S1, S2 normal. No murmurs. ABDOMEN: Distended and obese, otherwise it is soft and bowel sounds are diminished and not tender. EXTREMITIES: He has 2+ pitting edema bilateral lower extremities; the patient states that he started having edema after his surgery on his heart 2 weeks ago. NEUROLOGICAL FUNCTION: Gross neurological function is intact. PSYCHIATRIC: Mood and affect seem to be normal. LABORATORY DATA: From 05/07/2017, WBC is 11.1, hemoglobin is 7.7, platelet count is 165. Sodium was 141, potassium was 4.9 and bicarbonate was 23 and creatinine was 3.2 and BUN was 84 and hemoglobin was 7.7 and other labs were reviewed. IMAGING: Chest x-ray, abdominal x-ray were reviewed. ASSESSMENT AND PLAN: 1. Acute renal failure, which is likely because of intravascular volume depletion, but has high risk for acute tubular necrosis: The patient had a cardiac arrest, he was also hypotensive after that. He also had contrast exposure yesterday. Creatinine so far is better 3.2 today. He has evidence of [facility] [address] [place] [address] CONSULTATION Name: ANUP GALVEZ Room: [address] IN [facility].#: [id number] Admission: 05/06/17 Attend Phys: Mihir Rm MD Discharge: 05/13/17 Date of : 46 Report #: [id number] pitting edema. Would like to decrease his fluids to half normal saline at 75 mL an hour. Hold off on any Lasix for now. Avoid nephrotoxic agents. We will also check a renal ultrasound. We need to try to get records of his prior creatinine from [facility]. I have discussed this with nursing. Now that he is hemodynamically getting better, hopefully, he will have better renal blood flow and kidneys will keep getting better and he will not develop worse contrast-induced nephropathy. 2. Coronary artery disease, status post cardiac arrest, also bradycardia: The patient has a temporary pacer now, beta blockers are on hold, Cardiology is following the patient. He seems to be doing better from cardiac standpoint now. 3. Hypotension: Blood pressure dropped overnight. Now, the blood pressure is more stable. Try to keep his mean arterial pressure more than 65. 4. Anemia: Rule out iron deficiency. We will check his iron parameters for tomorrow morning's labs. 5. Possible sick sinus syndrome: The patient has a temporary pacer and beta-blockers are on hold and Cardiology is following the patient. 6. Evidence of proteinuria and microscopic hematuria and blood in urine. Creatinine so far is getting better. Proteinuria sometimes can become positive in urine when there is some hematuria. These should be tested again as an outpatient. 7. Diabetes. Again both. His baseline creatinine was 0.9 back in 02/2017, but I do not have the most recent baseline. 8. Evidence of respiratory alkalosis with metabolic acidosis and metabolic alkalosis and lactic acidosis: Metabolic acidosis with renal dysfunction as well as he has intravascular volume depletion causing metabolic alkalosis. Lactic acidosis is getting better and that was because of hypoperfusion. We will continue to monitor this and there is no need for any bicarbonate replacement right now. Thank you for this consultation and I will continue to follow along with you. Avoid any NSAIDs, BRIAN inhibitor or ARB or more IV contrast. Case was discussed with the patient's RN and the patient. <ELECTRONICALLY SIGNED> By: Teena Padilla MD 05/16/17 1349 0932 [id number] Padilla MD /nt
== END 2017-05-13 15:25 | disposition home or self-care (01) | DRG 208 ==
LOC: M.ERS 13:04 → M.CL 13:04 → M.ICU 14:56 → M.TBA-ER 14:56 → M.ICU 15:25 → M.3W 05-08 08:35 → M.ICU 05-09 10:31 → M.2W 05-11 14:27
PROVIDERS: Emergency Medicine; Internal Medicine; Internal Medicine Cardiovascular Disease; ADMIT Internal Medicine
DX: J69.0 Pneumonitis due to inhalation of food and vomit (principal); I46.9 Cardiac arrest, cause unspecified; N17.0 Acute kidney failure with tubular necrosis; J96.20 Acute and chronic respiratory failure, unspecified whether with hypoxia or hypercapnia; E87.2 Acidosis; E87.0 Hyperosmolality and hypernatremia; I48.92 Unspecified atrial flutter; K75.89 Other specified inflammatory liver diseases; I25.10 Atherosclerotic heart disease of native coronary artery without angina pectoris; I95.9 Hypotension, unspecified; I48.91 Unspecified atrial fibrillation; E66.9 Obesity, unspecified; K21.9 Gastro-esophageal reflux disease without esophagitis; N18.2 Chronic kidney disease, stage 2 (mild); E11.22 Type 2 diabetes mellitus with diabetic chronic kidney disease; E83.42 Hypomagnesemia; I12.9 Hypertensive chronic kidney disease with stage 1 through stage 4 chronic kidney disease, or unspecified chronic kidney disease; D50.9 Iron deficiency anemia, unspecified; Z79.899 Other long term (current) drug therapy; Z95.1 Presence of aortocoronary bypass graft; Z88.5 Allergy status to narcotic agent; Z82.49 Family history of ischemic heart disease and other diseases of the circulatory system; Z68.34 Body mass index [BMI] 34.0-34.9, adult; Z95.2 Presence of prosthetic heart valve

== ENCOUNTER 2017-11-23 10:38 | Inpatient (IN) | payer OTHER ==
[~2017-11-23] VITALS: Ht 165.1 cm; Wt 94.3 kg
[~2017-11-23 10:38] MED LIST changes: +CARDIZEM30 MG PO; +GLUCOTROL5 MG PO; +LEVAQUIN 500 M500 M3 PO; +PACERONE 200 M200 M1 PO; +TYLENOL325 MG PO
[2017-11-23] MEDS ORDERED: FARXIGA5 MG PO (10:53)
[2017-11-23 11:06] LABS: ABSOLUTE BASOPHILS 0.1 thou/uL (0.0-0.2); ABSOLUTE EOSINOPHILS 0.1 thou/uL (0.0-0.7); ABSOLUTE LYMPHOCYTES 0.9 thou/uL (0.8-5.3); ABSOLUTE MONOCYTES 0.5 thou/uL (0.0-1.2); ABSOLUTE NEUTROPHILS 4.9 thou/uL (1.6-8.1); BASOPHILS 0.9 %; EOSINOPHILS 0.9 %; HEMATOCRIT 42.2 % (42.0-52.0); HEMOGLOBIN 14.3 gm/dL (14.0-18.0); LYMPHOCYTES 14.4 %; MCHC 33.8 g/dL (28.0-37.0); MCV 94.6 fL (80.0-100.0); MONOCYTES 8.4 %; MPV 8.3 fl. (7.2-11.1); NUCLEATED RBCS 0 /100WBC; PLATELET COUNT* 99 thou/uL (150-400); POLYS 75.4 %; RBC 4.46 mil/uL (4.50-6.00); RDW-CV 14.9 % (10.5-14.5); WBC 6.5 thou/uL (4.0-11.0)
[2017-11-23 11:13] LABS: ANION GAP 10 mmol/L (7-16); BUN 18 mg/dL (7-18); CALCIUM 8.5 mg/dL (8.5-10.1); CHLORIDE 101 mmol/L (98-107); CO2 26 mmol/L (21-32); CREATININE 1.1 mg/dL (0.6-1.3); GLUCOSE 176 mg/dL (70-99); SODIUM 137 mmol/L (136-145)
[2017-11-23 11:26] LABS: APTT 28.2 Seconds (25.0-31.3); INR 1.2; PROTIME 12.1 Seconds (9.20-11.50)
[2017-11-23 11:35] LABS: ALBUMIN 3.7 g/dL (3.4-5.0); ALKALINE PHOSPHATASE 131 U/L (46-116); CK-MB MASS 2.7 ng/mL (<0.5-3.6); LIPASE 520 U/L (73-393); MAGNESIUM 1.8 mg/dL (1.8-2.4); NT-PRO BRAIN NAT PEPTIDE 409 pg/mL (<300); SGOT 74 U/L (15-37); SGPT 88 U/L (30-65); TOTAL BILIRUBIN 0.9 mg/dL (<0.1-1.0); TROPONIN-I LEVEL <0.06 ng/mL (<0.06)
[2017-11-23 13:40] VITALS: BP 109/54
[2017-11-23 13:46] VITALS: BP 140/85
[2017-11-23] MEDS ORDERED: XARELTO10 MG PO (15:14)
[2017-11-23 15:38] VITALS: BP 102/67
--- NOTE | 2017-11-23 16:33 | EKG ---
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[place] [facility] [place] 1950 Requested By: Lionel Ortiz Order Number: [id number] MD: Anup Serrano Measurements Intervals [place] Rate: 118 P: 109 MS: 96 QRS: -48 QRSD: 163 T: 127 QT: 397 QTc: 557 Interpretive Statements atrial flutter with 2:d1 block Left bundle branch block Compared to ECG 11/23/2017 09:50:27 Atrial flutter persists Electronically Signed On 11-23-2017 16:32:44 CDT by Anup Serrano [email or web address] <ELECTRONICALLY SIGNED> By: Anup Serrano MD, [facility] 11/23/17 1632 1046 1046 Anup Serrano MD, [facility] /EPI
--- NOTE | 2017-11-23 16:34 | EKG ---
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[facility] [place] 1950 Requested By: Vinita Case Order Number: [id number] MD: Anup Serrano Measurements Intervals [place] Rate: 119 P: 45 CO: 47 QRS: -44 QRSD: 163 T: 131 QT: 381 QTc: 537 Interpretive Statements Atrial flutter with 2:1 block Left bundle branch block Compared to ECG 11/23/2017 09:50:27 Atrial flutter persists Electronically Signed On 11-23-2017 16:34:33 CDT by Anup Serrano [email or web address] <ELECTRONICALLY SIGNED> By: Anup Serrano MD, [facility]AC 11/23/17 1634 1211 121 Anup Serrano MD, [facility] /EPI
--- NOTE | 2017-11-23 16:37 | EKG ---
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1950 Requested By: Lionel Ortiz Order Number: [id number] MD: Anup Serrano Measurements Intervals [place] Rate: 110 P: MA: QRS: -32 QRSD: 161 T: 122 QT: 397 QTc: 538 Interpretive Statements Atrial flutter with predominant 2:1 AV block Left bundle branch block Compared to ECG 11/23/2017 09:50:27 2:1 AV block persists Electronically Signed On 11-23-2017 16:37:15 CDT by Anup Serrano [email or web address] <ELECTRONICALLY SIGNED> By: Anup Serrano MD, [facility] 11/23/17 1637 1527 1527 Anup Serrano MD, [facility] /EPI
[2017-11-23 19:45] VITALS: BP 113/73
[2017-11-24] VITALS: BP 106/76
[2017-11-24 04:00] VITALS: BP 110/69
[2017-11-24 05:05] LABS: ABSOLUTE EOSINOPHILS 0.2 thou/uL (0.0-0.7); ABSOLUTE LYMPHOCYTES 1.2 thou/uL (0.8-5.3); ABSOLUTE MONOCYTES 0.6 thou/uL (0.0-1.2); BASOPHILS 0.7 %; EOSINOPHILS 3.9 %; HEMATOCRIT 41.7 % (42.0-52.0); HEMOGLOBIN 13.9 gm/dL (14.0-18.0); LYMPHOCYTES 23.5 %; MCH 32.1 pg (26.0-34.0); MCHC 33.5 g/dL (28.0-37.0); MCV 95.9 fL (80.0-100.0); MONOCYTES 11.5 %; MPV 8.1 fl. (7.2-11.1); NUCLEATED RBCS 0 /100WBC; PLATELET COUNT* 90 thou/uL (150-400); POLYS 60.4 %; RBC 4.35 mil/uL (4.50-6.00)
[2017-11-24 05:42] LABS: CALCIUM 8.5 mg/dL (8.5-10.1); POTASSIUM 3.7 mmol/L (3.5-5.1)
[2017-11-24 08:00] VITALS: BP 109/70
[2017-11-24 12:49] VITALS: BP 96/67
[2017-11-24 16:00] VITALS: BP 128/84
[2017-11-24 20:30] VITALS: BP 117/71
[2017-11-25] VITALS: BP 108/72
[2017-11-25 04:00] VITALS: BP 115/82
[2017-11-25 05:15] LABS: ABSOLUTE EOSINOPHILS 0.2 thou/uL (0.0-0.7); ABSOLUTE LYMPHOCYTES 0.9 thou/uL (0.8-5.3); ABSOLUTE MONOCYTES 0.6 thou/uL (0.0-1.2); ABSOLUTE NEUTROPHILS 2.6 thou/uL (1.6-8.1); BASOPHILS 0.9 %; EOSINOPHILS 4.5 %; HEMATOCRIT 39.7 % (42.0-52.0); HEMOGLOBIN 13.3 gm/dL (14.0-18.0); LYMPHOCYTES 20.2 %; MCH 32.3 pg (26.0-34.0); MCHC 33.6 g/dL (28.0-37.0); MONOCYTES 13.2 %; MPV 9.2 fl. (7.2-11.1); NUCLEATED RBCS 0 /100WBC; PLATELET COUNT* 83 thou/uL (150-400); POLYS 61.2 %; RBC 4.13 mil/uL (4.50-6.00); RDW-CV 14.8 % (10.5-14.5); WBC 4.2 thou/uL (4.0-11.0)
[2017-11-25 06:24] LABS: ALBUMIN 3.2 g/dL (3.4-5.0); CALCIUM 8.3 mg/dL (8.5-10.1); CREATININE 0.8 mg/dL (0.6-1.3); POTASSIUM 3.2 mmol/L (3.5-5.1); TOTAL BILIRUBIN 0.7 mg/dL (<0.1-1.0); TOTAL PROTEIN 6.3 g/dL (6.4-8.2)
[2017-11-25 08:00] VITALS: BP 141/82
[2017-11-25 12:00] VITALS: BP 109/69
[2017-11-25 15:55] VITALS: BP 129/78
[2017-11-25 20:00] VITALS: BP 145/73
[2017-11-26] VITALS (18 sets, daily range): BP systolic 124–166; BP diastolic 66–118
[2017-11-26 05:00] LABS: ABSOLUTE EOSINOPHILS 0.2 thou/uL (0.0-0.7); ABSOLUTE LYMPHOCYTES 0.9 thou/uL (0.8-5.3); ABSOLUTE MONOCYTES 0.6 thou/uL (0.0-1.2); BASOPHILS 1.1 %; EOSINOPHILS 4.1 %; HEMATOCRIT 38.2 % (42.0-52.0); HEMOGLOBIN 12.8 gm/dL (14.0-18.0); LYMPHOCYTES 23.4 %; MCH 32.3 pg (26.0-34.0); MCHC 33.6 g/dL (28.0-37.0); MONOCYTES 16.5 %; MPV 8.8 fl. (7.2-11.1); NUCLEATED RBCS 0 /100WBC; PLATELET COUNT* 85 thou/uL (150-400); POLYS 54.9 %; RBC 3.98 mil/uL (4.50-6.00); RDW-CV 14.9 % (10.5-14.5); WBC 3.7 thou/uL (4.0-11.0)
[2017-11-26 05:29] LABS: ALBUMIN 3.2 g/dL (3.4-5.0); CREATININE 0.9 mg/dL (0.6-1.3); TOTAL BILIRUBIN 0.6 mg/dL (<0.1-1.0)
[2017-11-26 05:30] LABS: POTASSIUM 4.2 mmol/L (3.5-5.1)
--- NOTE | 2017-11-26 13:34 | TEE ---
[place] [address] TRANSESOPHAGEAL ECHOCARDIOGRAM Name: ANUP GALVEZ Room: [address] IN [facility]#: [id number] Admission: 11/23/17 Attend Phys: Santana Russ, Discharge: Date of : 46 Date of Service: 11/26/17 1333 Report #: [id number] THIS REPORT FOR: //name// APPROVED REPORT Study performed: 11/26/2017 10:31:17 EXAM: Transesophageal Echocardiogram Patient Location: CVL BSA: 2.01 HR: 115 bpm BP: 148/90 mmHg Other Information Study Quality: Good Indications Atrial Fibrillation Echo Enhancing Agent Indication: Rule Out Septal Defect Agent(s) / Amount(s) Used: Agitated Saline cc Procedure After obtaining informed consent, patient underwent transesophageal echo in the [employer]. Type of Sedation : Conscious Sedation Sedation was administered by Nicole Haley RN. Sedation was achieved intravenously with: Transesophageal probe was inserted and advanced into esophagus without difficulty by Gerald Queen MD, [facility]. Echo enhancement indication: R/O Septal defect. Echo enhancement agent administered: Agitated Saline The TENZIN was performed without complications. Synchronized Cardioversion attempted: Successful Synchronized Cardioversion acheived with 200 Joules after one attempt(s). Rhythm following Synchronized Cardioversion: Normal Sinus Rhythm Throughout the procedure, the blood pressure, pulse oximetry, cardiac rhythm, and rate were monitored. The patient tolerated the procedure without adverse effects. Recovery from conscious sedation was uneventful and vital signs were stable. Left Ventricle [place] [id number] TRANSESOPHAGEAL ECHOCARDIOGRAM Name: ANUP GALVEZ Room: [address]#: [id number] Admission: 11/23/17 Attend Phys: Santana Russ, Discharge: Date of : 46 Date of Service: 11/26/17 1333 Report #: [id number] The left ventricle is normal size. There is normal left ventricular wall thickness. The left ventricular systolic function is normal. The left ventricular ejection fraction is within the normal range. LVEF is 55%. Right Ventricle The right ventricle is normal size. The right ventricular systolic function is normal. Atria The left atrium size is normal. Injection of bubbles documented no interatrial shunt. Only a small remanent of a left atrial appendage was noted suggesting the appendage was removed at the time of surgery The right atrium size is normal. Aortic Valve Bioprosthetic aortic valve is present. No aortic regurgitation is present. There is no aortic valvular stenosis. Mitral Valve The mitral valve is normal in structure. Mild mitral regurgitation. No evidence of mitral valve stenosis. Tricuspid Valve The tricuspid valve is normal in structure. Mild tricuspid regurgitation. Pulmonic Valve The pulmonary valve is normal in structure. There is no pulmonic valvular regurgitation. Great Vessels The aortic root is normal in size. Pericardium There is no pericardial effusion. <Conclusion> LVEF is 55%. Mild tricuspid regurgitation. Mild mitral regurgitation. Injection of bubbles documented no interatrial shunt. Only a small remanent of a left atrial appendage was noted suggesting the appendage was [place] [address] TRANSESOPHAGEAL ECHOCARDIOGRAM Name: NAUP GALVEZ Room: [address] IN [facility]#: [id number] Admission: 11/23/17 Attend Phys: Santana Russ, Discharge: Date of : 46 Date of Service: 11/26/171332 Report #: [id number] Bioprosthetic aortic valve is present. successful cardioversion from atrial flutter to NSR <ELECTRONICALLY SIGNED> By: Gerald Quene MD, FACC 11/26/171332 32 32 Gerald Queen MD, FACC /INF
[2017-11-27 06:26] VITALS: BP 148/81
[2017-11-27 08:14] VITALS: BP 150/70
--- NOTE | 2017-11-27 11:56 | EKG ---
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1950 Requested By: Gerald Queen Order Number: [id number] Reading MD: Jean Claude Oconnor Measurements Intervals [place] Rate: 84 P: 80 VA: 197 QRS: -31 QRSD: 171 T: 134 QT: 459 QTc: 543 Interpretive Statements Sinus rhythm Left bundle branch block Compared to ECG 11/23/2017 15:27:43 Atrial flutter no longer present 2:1 AV block no longer present Electronically Signed On 11-27-2017 11:56:09 CDT by Jean Claude Oconnor [email or web address] <ELECTRONICALLY SIGNED> By: Jean Claude Oconnor MD, [facility]ACC 11/27/17 1156 0840 0840 Jean Claude Oconnor MD, [facility] /EPI
[2017-11-27] MEDS ORDERED: ELIQUIS5 MG PO (12:12)
[2017-11-27 12:20] VITALS: BP 150/70
== END 2017-11-27 12:36 | disposition home or self-care (01) | DRG 308 ==
LOC: M.ERS 10:38 → M.2W 12:15 → M.TBA-ER 12:15 → M.2W 14:05
PROVIDERS: Family Medicine; ADMIT Internal Medicine
PROC: 5A2204Z Restoration of Cardiac Rhythm, Single (ICD-10-PCS; principal; 2017-11-26)
PROC: B24BZZ4 Ultrasonography of Heart with Aorta, Transesophageal (ICD-10-PCS; principal; 2017-11-26)
DX: I48.91 Unspecified atrial fibrillation (principal); R65.11 Systemic inflammatory response syndrome (SIRS) of non-infectious origin with acute organ dysfunction; I48.92 Unspecified atrial flutter; K70.10 Alcoholic hepatitis without ascites; I25.10 Atherosclerotic heart disease of native coronary artery without angina pectoris; E11.9 Type 2 diabetes mellitus without complications; I10 Essential (primary) hypertension; K70.30 Alcoholic cirrhosis of liver without ascites; K21.9 Gastro-esophageal reflux disease without esophagitis; D69.6 Thrombocytopenia, unspecified; F10.20 Alcohol dependence, uncomplicated; E66.9 Obesity, unspecified; Z95.1 Presence of aortocoronary bypass graft; Z79.84 Long term (current) use of oral hypoglycemic drugs; Z88.5 Allergy status to narcotic agent; Z95.5 Presence of coronary angioplasty implant and graft; Z95.2 Presence of prosthetic heart valve; Z68.34 Body mass index [BMI] 34.0-34.9, adult

== ENCOUNTER → 2018-05-10 | Outpatient (CLI) | payer OTHER ==
[~2018-05-10] MED LIST changes: +ELIQUIS5 MG PO; +FARXIGA5 MG PO; +XARELTO10 MG PO
[2018-05-10 10:56] LABS: INR 1.1; PROTIME 11.6 Seconds (9.20-11.50)
== END ==
LOC: M.ULTRA 07:30
PROVIDERS: Physician Assistant
DX: K76.0 Fatty (change of) liver, not elsewhere classified (principal); D69.6 Thrombocytopenia, unspecified; E78.89 Other lipoprotein metabolism disorders; K80.20 Calculus of gallbladder without cholecystitis without obstruction; R16.0 Hepatomegaly, not elsewhere classified

== ENCOUNTER → 2018-05-31 | Outpatient (CLI) | payer OTHER ==
[2018-05-31 14:22] LABS: ALBUMIN 3.7 g/dL (3.4-5.0); DIRECT BILIRUBIN 0.2 mg/dL (<0.1-0.3); TOTAL BILIRUBIN 0.8 mg/dL (<0.1-1.0); TOTAL PROTEIN 7.1 g/dL (6.4-8.2)
== END ==
LOC: M.LAB 13:55
PROVIDERS: Nurse Practitioner
DX: I48.0 Paroxysmal atrial fibrillation (principal); I25.10 Atherosclerotic heart disease of native coronary artery without angina pectoris; E11.9 Type 2 diabetes mellitus without complications; Z95.1 Presence of aortocoronary bypass graft; Z88.5 Allergy status to narcotic agent; Z98.890 Other specified postprocedural states

== ENCOUNTER → 2018-12-03 | Outpatient (CLI) | payer OTHER | LOC: M.RAD 10:04 | DX: I48.91 Unspecified atrial fibrillation (principal); Z88.8 Allergy status to other drugs, medicaments and biological substances ==

== ENCOUNTER 2019-04-17 11:36 | Observation (INO) | payer MEDICARE ==
[~2019-04-17] VITALS: Ht 165.1 cm; Wt 92.1 kg
--- NOTE | ~2019-04-17 | PROC ---
[address] [address] PROCEDURE REPORT Name: ANUP GALVEZ Room: [address] Vanita M.RCourtney#: [id number] Admission: 04/17/19 Attend Phys: Julián Maravilla MD Discharge: 04/17/19 Date of : 46 Report #: [id number] THIS REPORT FOR: //name// cc: Dash Avila MD, William MD ~ THIS REPORT FOR: //name// For GI report, please see the Provation report in Perceptive 7 content. By: 0613Medical Records Staff [facility] /ANTONIA
[~2019-04-17 11:36] MED LIST changes: -TOPROL XL100 MG
[2019-04-17 12:00] VITALS: BP 141/82
--- NOTE | 2019-04-17 12:39 | NUR ---
1200 PATIENT ADMITTED DIRECTLY FROM SURGERY CENTER. PLEASE SEE ADMISSION ASSESSMENT AND HISTORY
[2019-04-17] MEDS ORDERED: TOPROL XL100 MG (13:08)
[2019-04-17 14:45] VITALS: BP 126/83
--- NOTE | 2019-04-17 14:53 | NUR ---
ADENOSINE AND IV LOPRESSOR GIVEN IN ATTEMPT TO CONVERT RHYTHM. DR FERRARI IN ROOM WITH PATIENT AND PATIENT ON CRASH CART PADS WITH CONTINUOUS PULSE OXIMETRY. SEDATED PER ORDER. CARDIOVERTED TO SINUS RHYTHM WITH [address] FERRARI. SPOUSE PRESENT DURING THIS PROCEDURE.
--- NOTE | 2019-04-17 15:35 | NUR ---
TO HOLDING AREA FOR PROCEDURE
--- NOTE | 2019-04-17 16:49 | H ---
[place] [address] HISTORY AND PHYSICAL Name: ANUP GALVEZ Room: [address] M.R.#: [id number] Admission: 04/17/19 Attend Phys: Julián Maravilla MD Discharge: Date of : 46 Report #: [id number] THIS REPORT FOR: //name// cc: Dash Avila MD, William MD ~ THIS REPORT FOR: //name// CC: Gerald Queen MD [facility] Julián Zhao MD CARDIOLOGY ADMISSION HISTORY AND PHYSICAL INDICATION: Recurrent atrial flutter. HISTORY OF PRESENT ILLNESS: The patient is a very pleasant 68-year-old gentleman with history of coronary artery disease and paroxysmal atrial arrhythmias. [facility] lower [facility] procedures. He was noted by Anesthesia to be tachycardic. Therefore, the procedures were put on hold. The patient was brought in for further observation the hospital and rate control. He is asymptomatic with this. The patient has a history of paroxysmal atrial fibrillation and flutter in the past. He is currently on Eliquis and amiodarone. He has a history of some atrial fibrillation as well in the past. The patient has a history of coronary artery disease, status post 2-vessel coronary artery bypass grafting and bioprosthetic aortic valve replacement at [facility], approximately 2 years ago. He denies any chest pain, tightness or pressure. Prior to surgery, his symptom was dyspnea and shortness of breath. He has not had any dyspnea or shortness of breath. Telemetry shows a regular rate, tachycardia that I presume to be a slow atrial flutter with 2:1 conduction. PAST MEDICAL HISTORY: 1. Coronary artery disease, status post 2-vessel coronary artery bypass grafting with multiple stents prior to that. 2. Aortic valve disease, status post bioprosthetic aortic valve replacement. 3. Paroxysmal atrial fibrillation/flutter. 4. Chronic anticoagulation without bleeding problems. 5. Hypertension. 6. Mixed hyperlipidemia. 7. Type 2 diabetes mellitus. FAMILY HISTORY: Noncontributory. SOCIAL HISTORY: The patient is a lifelong nonsmoker[place] [address] HISTORY AND PHYSICAL Name: ANUP GALVEZ Room: [address]#: [id number] Admission: 04/17/19 Attend Phys: Julián Maravilla MD Discharge: Date of : 46 Report #: [id number]. ALLERGIES: MORPHINE. CURRENT MEDICATIONS: Amiodarone 200 mg daily, Eliquis 5 mg b.i.d., Prevagen 10 mg weekly, Lipitor 10 mg nightly, Farxiga 10 mg q.a.m., iron sulfate 325 mg daily, glipizide 5 mg daily, Xalatan eye drops both eyes nightly, lisinopril 5 mg daily, magnesium oxide 250 mg every week, melatonin 3 mg at bedtime p.r.n., metoprolol succinate 50 mg daily, multivitamin one tablet daily, Protonix 40 mg daily, probiotic one tablet daily, testosterone gel topically daily, trazodone 50 mg nightly. REVIEW OF SYSTEMS: Positive for some musculoskeletal and joint pain. Mild dyspnea on exertion. No chest pain, no lightheadedness, no dizziness. He denies any bleeding problems. Otherwise, 14-point review of systems unremarkable. PHYSICAL EXAMINATION: VITAL SIGNS: Stable. Blood pressure was 136/72, pulse is irregular and 118 beats per minute. GENERAL: This is a moderately obese, pleasant white male, in no distress. Mood and affect appropriate. HEENT: Extraocular muscles intact. Mucous membranes are moist. NECK: Shows no jugular venous distention. There are no carotid bruits. CHEST: Reveals clear lung cannon without wheezes, rales or rhonchi. CARDIOVASCULAR: Reveals a tachycardic rate with a regular rhythm. I do not appreciate gallop or murmur. ABDOMEN: Reveals a protuberant abdomen, soft and nontender. Bowel sounds present. EXTREMITIES: Shows no edema. Peripheral pulses are 2+ and easily palpable. SKIN: Warm and dry. IMPRESSION AND RECOMMENDATIONS: 1. Recurrent atrial flutter. Plan adjustment to medications and possible cardioversion if he fails to convert. 2. Coronary artery disease, presently stable. Continue current regimen as outlined above. 3. Hyperlipidemia. Continue atorvastatin at current dose. 4. History of hypertension. Blood pressure adequately controlled. 5. Type 2 diabetes mellitus. Continue diabetes regimen outlined above. 6. Gastrointestinal procedure is scheduled. We will attempt adequate rate control prior to resuming the schedule of GI procedures. <ELECTRONICALLY SIGNED> By: Julián Maravilla MD, FACC 04/17/19 1649 1502 1537Micmike Maravilla MD, FACC /nt
[2019-04-17 18:30] VITALS: BP 108/67
[2019-04-17 18:32] VITALS: BP 126/83
--- NOTE | 2019-04-17 18:41 | NUR ---
1820 RECEIVED BACK ROM PACU. PT IN SINUS RHYTHM WITH BBB. PT WILL DISCHARGE TONIGHT
--- NOTE | 2019-04-17 19:15 | NUR ---
DISCHARGED HOME WITH SPOUSE
--- NOTE | 2019-04-21 14:07 | PATH ---
[address] [address] PATHOLOGY RPT PROCEDURE Name: ANUP GALVEZ Room: [address] Vanita Hawthorne#: [id number] Admission: 04/17/19 Date of : 46 Discharge: 04/17/19 Report #: [id number] Path Case #: [id number] [facility] Accession Number: [id number] . 01 Material submitted: . PART A: esophagus - BIOPSY OF DISTAL ESOPHAGUS. Modifiers: distal PART B: stomach - GASTRIC POLYP IN CARDIA PART C: colon - TRANSVERSE COLON POLYP. Modifiers: transverse PART D: sigmoid colon - SIGMOID COLON POLYPS . 01 Clinical history: . A. Rule out dysplasia . 02 Diagnosis: A. Biopsy of distal esophagus: - Benign esophageal and gastric/columnar types mucosa with moderate chronic inflammation compatible with reflux, negative for goblet cells/diagnostic Shaffer's metaplasia and dysplasia. . B. Gastric polyp in cardia: - Hyperplastic gastric polyp, negative for dysplasia/adenomatous change. . C. Transverse colon polyp: - Tubular adenoma, negative for high-grade dysplasia. . D. Sigmoid colon polyps: - One fragment of hyperplastic polyp and multiple fragments of tubular adenoma(s), negative for high-grade dysplasia. . (AYESHA:devora; 04/21/2019) MBR 04/21/2019 1122 Local . 02 Electronically signed: . Ifeanyi He MD, Pathologist NPI- [id number] . 01 Gross description: . A. The specimen is received in formalin, labeled "Anup Galvez, biopsy of distal esophagus" and consists of 2 fragments of pink-varela tissue measuring 0.2 x 0.2 cm and 0.3 x 0.2 cm which are entirely submitted in A1. . B. The specimen is received in formalin, labeled "Anup Galvez, gastric polyp in cardia" and consists of a fragment of varela pink tissue measuring 0.3 x 0.3 x 0.1 cm which is entirely submitted in B1. . C. The specimen is received in formalin, labeled "Anup Galvez, transverse colon polyp" and consists of a fragment of green pink tissue measuring 0.5 x 0.4 x 0.1 cm which is entirely submitted [place] [address] PATHOLOGY RPT PROCEDURE Name: GALVEZANUP Room: [address] Vanita Hawthorne#: [id number] Admission: 04/17/19 Date of : 46 Discharge: 04/17/19 Report #: [id number] Path Case #: [id number] . D. The specimen is received in formalin, labeled "Anup Galvez, sigmoid colon polyps" and consists of 4 fragments of green varela tissue measuring 0.9 x 0.7 x 0.3 cm in aggregate which are entirely submitted in D1. (SDY; 04/18/2019) SYU/SYU 04/18/2019 1643 Local . 02 Pathologist provided ICD-10: K20.9, K31.7, D12.3, D12.5, K63.5 . 02 CPT . 334489, 246439, 573160, 431158 Specimen Comment: A courtesy copy of this report has been sent to [phone] Specimen Comment: [phone], Specimen Comment: Report sent to ,DR ORTEGA / DR FERRARI Specimen Comment: A duplicate report has been generated due to demographic updates. Performed at: [facility] [address], [place], [place] [address] MD Sonu Mccall MD Phone: [phone] Performed at: 02 [facility] [address], [place], [place] [address] MD Ifeanyi He MD Phone: [phone]
--- NOTE | 2019-04-25 14:58 | EKG ---
[place] [address] ELECTROCARDIOGRAM REPORT Name: ANUP GALVEZ Room: [address] M.R.#: [id number] Admission: 04/17/19 Attend Phys: Julián Maravilla, Discharge: 04/17/19 Date of : 46 Date of Service: 04/17/19 1515 Report #: [id number] THIS REPORT FOR: //name// [facility] Test Date: 2019-04-17 Test Time: 15:15:06 Pat Name: ANUP GALVEZ Department: Room: [address] Gender: M Patient Financial Services Coordinator: : 1950 Requested By: Julián Maravilla Order Number: [id number] MD: Julián Maravilla Measurements Intervals [place] Rate: 69 P: 83 CO: 179 QRS: -34 QRSD: 166 T: 136 QT: 466 QTc: 500 Interpretive Statements Sinus rhythm Left bundle branch block Compared to ECG 11/27/2017 08:40:50 No significant changes Electronically Signed On 04-17-2019 16:01:31 POST TRONIC MACHINE OPERATOR by Julián Maravilla [email or web address] <ELECTRONICALLY SIGNED> By: Julián Maravilla MD, FACC 04/17/19 1601 1515 1515 Julián Maravilla MD, FAC /EPI
== END 2019-04-17 19:32 | disposition home or self-care (01) ==
LOC: M.2W 11:36
PROVIDERS: ADMIT Internal Medicine Cardiovascular Disease
DX: Z12.11 Encounter for screening for malignant neoplasm of colon (principal); K22.70 Barrett's esophagus without dysplasia; K31.7 Polyp of stomach and duodenum; D12.5 Benign neoplasm of sigmoid colon; D12.3 Benign neoplasm of transverse colon; I48.92 Unspecified atrial flutter; K64.8 Other hemorrhoids; I25.10 Atherosclerotic heart disease of native coronary artery without angina pectoris; I48.0 Paroxysmal atrial fibrillation; I10 Essential (primary) hypertension; E78.2 Mixed hyperlipidemia; E11.9 Type 2 diabetes mellitus without complications

== ENCOUNTER → 2019-04-17 | Outpatient (CLI) | payer MEDICARE ==
[~2019-04-17] MED LIST changes: +TOPROL XL100 MG
[2019-04-17 08:59] LABS: HEMATOCRIT 34.4 % (42.0-52.0); HEMOGLOBIN 11.8 gm/dL (14.0-18.0); MCHC 34.3 g/dL (28.0-37.0); MCV 93.1 fL (80.0-100.0); MPV 8.2 fl. (7.2-11.1); RBC 3.69 mil/uL (4.50-6.00); RDW-CV 13.8 % (10.5-14.5); WBC 4.3 thou/uL (4.0-11.0)
[2019-04-17 09:11] LABS: ALBUMIN 3.3 g/dL (3.4-5.0); CALCIUM 8.1 mg/dL (8.5-10.1); CREATININE 0.8 mg/dL (0.6-1.3); MAGNESIUM 1.8 mg/dL (1.8-2.4); POTASSIUM 4.2 mmol/L (3.5-5.1); TOTAL BILIRUBIN 1.6 mg/dL (<0.1-1.0); TOTAL PROTEIN 6.4 g/dL (6.4-8.2)
--- NOTE | 2019-04-18 16:16 | CARD ---
[address] [address] CARDIAC CATH REPORT Name: GALVEZANUP ALLEN Room: [facility]#: [id number] Admission: 04/17/19 Attend Phys: Kian Rivera Discharge: Date of : 46 Report #: [id number] THIS REPORT FOR: //name// cc: Dash Avila MD, William MD ~ THIS REPORT FOR: //name// CC: Kian Avila DATE OF SERVICE: 04/17/2019 PROCEDURE: Direct current cardioversion. INDICATION: Persistent atrial flutter. DESCRIPTION OF PROCEDURE: After informed consent was obtained, the patient was given intravenous Versed and fentanyl for conscious sedation. Once the patient was adequately sedated, he received a single biphasic shock of 300 joules converting to normal sinus rhythm. The patient tolerated the procedure well without complication. IMPRESSION: 1. Persistent atrial flutter. 2. Successful direct current cardioversion to normal sinus rhythm. <ELECTRONICALLY SIGNED> By: Julián Maravilla MD, FACC 04/18/19 [address] [place], [place] [address]jennifer Maravilla MD, FACC /nt
== END ==
LOC: M.LAB 08:40
PROVIDERS: Anesthesiology
DX: K57.90 Diverticulosis of intestine, part unspecified, without perforation or abscess without bleeding (principal); K21.9 Gastro-esophageal reflux disease without esophagitis

== ENCOUNTER 2019-07-20 00:02 | Emergency (ER) | payer MEDICARE ==
[~2019-07-20] VITALS: Ht 165.1 cm; Wt 86.2 kg
[~2019-07-20 00:02] MED LIST changes: +TOPROL XL100 MG
[2019-07-20] MEDS ORDERED: DILTIAZEM ER180 M2 PO (00:17)
[2019-07-20] MEDS ORDERED: MELATONIN3 M1 PO (00:18)
[2019-07-20] MEDS ORDERED: CENTRUM ADULTS1 EACH PO (00:18)
[2019-07-20] MEDS ORDERED: PREVAGEN (00:19)
[2019-07-20] MEDS ORDERED: PROBIOTIC1 EAC7 PO (00:20)
[2019-07-20] MEDS ORDERED: MAGNESIUM250 M1 PO (00:20)
[2019-07-20] MEDS ORDERED: IRON325 M1 PO (00:20)
[2019-07-20 01:47] VITALS: BP 102/62
[2019-07-24] MEDS ORDERED: PACERONE200 MG PO (16:19)
[2019-07-24] MEDS ORDERED: FARXIGA10 MG PO (16:22)
[2019-07-24] MEDS ORDERED: LISINOPRIL5 MG PO (16:25)
[2019-07-24] MEDS ORDERED: PROTONIX40 M2 PO (16:35)
[2019-07-24] MEDS ORDERED: XALATAN2.5 ML EA. EYE (16:36)
[2019-07-25] MEDS ORDERED: PACERONE200 MG PO (08:59)
== END 2019-07-20 01:49 | disposition home or self-care (01) ==
LOC: M.ERS 00:02
DX: S01.01XA Laceration without foreign body of scalp, initial encounter (principal); E11.9 Type 2 diabetes mellitus without complications; I48.91 Unspecified atrial fibrillation; I25.10 Atherosclerotic heart disease of native coronary artery without angina pectoris; K21.9 Gastro-esophageal reflux disease without esophagitis; F10.20 Alcohol dependence, uncomplicated; Z88.8 Allergy status to other drugs, medicaments and biological substances; Z88.6 Allergy status to analgesic agent; W13.8XXA Fall from, out of or through other building or structure, initial encounter; Y93.89 Activity, other specified; Y92.89 Other specified places as the place of occurrence of the external cause; Y99.8 Other external cause status

== ENCOUNTER 2019-07-25 13:20 | Emergency (ER) | payer MEDICARE ==
[~2019-07-25] VITALS: Ht 167.6 cm; Wt 86.2 kg
[2019-07-25 14:01] VITALS: BP 113/55
== END 2019-07-25 14:01 | disposition home or self-care (01) ==
LOC: M.ERS 13:20
DX: Z48.02 Encounter for removal of sutures (principal); I10 Essential (primary) hypertension; E11.9 Type 2 diabetes mellitus without complications; I25.10 Atherosclerotic heart disease of native coronary artery without angina pectoris; K21.9 Gastro-esophageal reflux disease without esophagitis; I48.91 Unspecified atrial fibrillation; Z88.8 Allergy status to other drugs, medicaments and biological substances; Z88.6 Allergy status to analgesic agent

== ENCOUNTER → 2019-07-25 | Outpatient (CLI) | payer MEDICARE ==
[2019-07-25] VITALS (9 sets, daily range): BP systolic 93–132; BP diastolic 0–87
[~2019-07-25] MED LIST changes: +CENTRUM ADULTS1 EACH PO; +DILTIAZEM ER180 M2 PO; +FARXIGA10 MG PO; +IRON325 M1 PO; +LISINOPRIL5 MG PO; +MAGNESIUM250 M1 PO; +MELATONIN3 M1 PO; +PACERONE200 MG PO; +PREVAGEN; +PROBIOTIC1 EAC7 PO; +PROTONIX40 M2 PO; +XALATAN2.5 ML EA. EYE
[2019-07-25 09:40] LABS: HEMATOCRIT 38.7 % (42.0-52.0); MCH 29.4 pg (26.0-34.0); MCHC 33.6 g/dL (28.0-37.0); MCV 87.6 fL (80.0-100.0); MPV 7.9 fl. (7.2-11.1); RBC 4.42 mil/uL (4.50-6.00); RDW-CV 15.3 % (10.5-14.5); WBC 4.7 thou/uL (4.0-11.0)
[2019-07-25 09:42] LABS: CREATININE 0.9 mg/dL (0.6-1.3); POTASSIUM 3.7 mmol/L (3.5-5.1)
[2019-07-25 09:47] LABS: ALBUMIN 3.4 g/dL (3.4-5.0); TOTAL BILIRUBIN 0.5 mg/dL (<0.1-1.0); TOTAL PROTEIN 6.7 g/dL (6.4-8.2)
--- NOTE | 2019-07-25 13:55 | EKG ---
[place] [address] ELECTROCARDIOGRAM REPORT Name: ANUP GALVEZ Room: [facility]#: [id number] Admission: 07/25/19 Attend Phys: Gerald Queen MD Discharge: Date of : 46 Date of Service: 07/25/19 [facility] Report #: [id number] THIS REPORT FOR: //name// 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: : 1950 Requested By: Gerald Queen Order Number: [id number] MD: Gerald Queen Measurements Intervals [place] Rate: 75 P: 78 WI: 197 QRS: -40 QRSD: 170 T: 124 QT: 487 QTc: 544 Interpretive Statements Sinus rhythm Left bundle branch block Compared to ECG 04/17/2019 15:15:06 No significant changes Electronically Signed On 07-25-2019 13:53:20 CDT by Gerald Queen [email or web address] <ELECTRONICALLY SIGNED> By: Gerald Queen MD, [facility] 07/25/19 1353 1038 1038 Gerald Queen MD, [facility] /EPI
--- NOTE | 2019-07-25 15:34 | CARD ---
[address] [address] CARDIAC CATH REPORT Name: ANUP GALVEZ Room: [facility]#: [id number] Admission: 07/25/19 Attend Phys: Gerald Queen MD, F Discharge: Date of : 46 Report #: [id number] THIS REPORT FOR: //name// cc: Dash Avila MD, William MD ~ CC: Gerald Avila DATE OF SERVICE: 07/25/2019 TITLE OF PROCEDURE: Direct current cardioversion of atrial flutter. INDICATIONS: The patient had a history of paroxysmal atrial fibrillation. The patient was noted to be in atrial flutter. He had chronically been on amiodarone and Eliquis prior to the procedure. PROCEDURE: The patient was brought to the cardiac catheterization lab in a fasting state after having received his usual oral dose of amiodarone and Eliquis. Hands free cardioversion patches were applied in the anterior and posterior location. Informed consent was obtained by discussing indications, alternatives and risks of the procedure with the patient and he agreed to proceed. Moderate sedation was accomplished by administering a total of 4 mg of Versed and 25 mg of fentanyl. The patient was then cardioverted with 200 joules of synchronized direct current energy. The patient tolerated the procedure well. The patient was noted to be in sinus rhythm at the end of the procedure. The patient denied any complaints at this time. IMPRESSION: Successful direct cardioversion of atrial flutter to normal sinus rhythm. <ELECTRONICALLY SIGNED> By: Gerald Queen MD, FACC 07/25/19 1534 1405 1434Dla nena Queen MD, [facility] /nt
== END | disposition home or self-care (01) ==
LOC: M.CL 08:59
PROVIDERS: Internal Medicine Cardiovascular Disease
DX: I48.92 Unspecified atrial flutter (principal); I48.91 Unspecified atrial fibrillation; I25.10 Atherosclerotic heart disease of native coronary artery without angina pectoris; D64.9 Anemia, unspecified; Z79.899 Other long term (current) drug therapy; Z88.8 Allergy status to other drugs, medicaments and biological substances; Z79.01 Long term (current) use of anticoagulants

== ENCOUNTER → 2019-10-29 | Outpatient (CLI) | payer MEDICARE | LOC: M.LAB 09:40 | PROVIDERS: ATTEND Registered Nurse | DX: I48.21 Permanent atrial fibrillation (principal) ==

== ENCOUNTER → 2020-01-12 | Outpatient (CLI) | payer MEDICARE ==
[2020-01-12 16:18] LABS: ALBUMIN 3.8 g/dL (3.4-5.0); DIRECT BILIRUBIN 0.2 mg/dL (<0.1-0.3); TOTAL BILIRUBIN 0.7 mg/dL (<0.1-1.0); TOTAL PROTEIN 7.3 g/dL (6.4-8.2)
== END ==
LOC: M.LAB 15:36
PROVIDERS: ATTEND Internal Medicine Cardiovascular Disease
DX: I48.21 Permanent atrial fibrillation (principal); I70.0 Atherosclerosis of aorta; Z79.899 Other long term (current) drug therapy

== ENCOUNTER → 2020-07-15 | Outpatient (CLI) | payer MEDICARE ==
[~2020-07-15] MED LIST changes: +APOAEQUORIN PO; +CENTRUM SILVER1 EAC5 PO; +COQ-1030 MG PO; +DIGOXIN250 MCG PO; +OZEMPIC0.25 MG/0. SUBQ; -TOPROL XL100 MG; +TOPROL XL100 MG PO; +[UNRECOGNIZED DRUG - OTHER] TOP
== END ==
LOC: M.RAD 09:23
PROVIDERS: ATTEND Internal Medicine Cardiovascular Disease
DX: I48.91 Unspecified atrial fibrillation (principal); Z95.4 Presence of other heart-valve replacement

== ENCOUNTER → 2020-07-23 | Outpatient (CLI) | payer MEDICARE ==
[~2020-07-23] VITALS: Ht 165.1 cm; Wt 76.2 kg
[2020-07-23 08:29] VITALS: BP 113/53
[2020-07-23 08:55] LABS: HEMATOCRIT 44.8 % (42.0-52.0); HEMOGLOBIN 15.1 gm/dL (14.0-18.0); MCH 29.2 pg (26.0-34.0); MCHC 33.7 g/dL (28.0-37.0); MCV 86.7 fL (80.0-100.0); MPV 8.4 fl. (7.2-11.1); RBC 5.16 mil/uL (4.50-6.00); RDW-CV 15.8 % (10.5-14.5); WBC 6.2 thou/uL (4.0-11.0)
[2020-07-23 09:04] LABS: INR 1.1; PROTIME 11.9 Seconds (9.20-11.50)
[2020-07-23 09:05] LABS: ALKALINE PHOSPHATASE 115 U/L (46-116); ANION GAP 8 mmol/L (7-16); BUN 22 mg/dL (7-18); CALCIUM 8.7 mg/dL (8.5-10.1); CHLORIDE 104 mmol/L (98-107); CHOLESTEROL 96 mg/dL (<200); CO2 28 mmol/L (21-32); CREATININE 0.8 mg/dL (0.6-1.3); GLUCOSE 137 mg/dL (70-99); HDL CHOLESTEROL 43 mg/dL (>40); LDL CHOLESTEROL 44 mg/dL (<100); POTASSIUM 4.2 mmol/L (3.5-5.1); SGOT 19 U/L (15-37); SGPT 32 U/L (30-65); SODIUM 140 mmol/L (136-145); TC:HDL 2.2 Ratio (Not establshd); TOTAL BILIRUBIN 0.8 mg/dL (<0.1-1.0); TOTAL PROTEIN 7.3 g/dL (6.4-8.2); TRIGLYCERIDE 49 mg/dL (<150); VLDL 10 mg/dL (<40)
[2020-07-23 09:07] LABS: SERUM ASSESSMENT Clear
--- NOTE | 2020-07-23 10:01 | EKG ---
[place] [address] ELECTROCARDIOGRAM REPORT Name: ANUP GALVEZ Room: [facility]#: [id number] Admission: 07/23/20 Attend Phys: Gerald Queen MD Discharge: Date of : 46 Date of Service: 07/23/20 0854 Report #: [id number] THIS REPORT FOR: //name// [facility] Test Date: 2020-07-23 Test Time: 08:54:46 Pat Name: ANUP GALVEZ Department: Room: Gender: Video Editor: : 1950 Requested By: Gerald Queen Order Number: [id number] Reading MD: Gerald Queen Measurements Intervals [place] Rate: 73 P: AL: QRS: -50 QRSD: 165 T: 139 QT: 416 QTc: 459 Interpretive Statements Atrial flutter with predominant 3:1 AV block Left bundle branch block Compared to ECG 07/25/2019 10:38:26 Sinus rhythm no longer present Electronically Signed On 07-23-2020 10:01:18 CDT by Gerald Queen [email or web address] <ELECTRONICALLY SIGNED> By: Gerald Queen MD, [facility] 07/23/20 1001 0854 0854 Gerald Queen MD, [facility] /EPI
[2020-07-23 11:00] VITALS: BP 96/60
[2020-07-23 11:15] VITALS: BP 110/60
[2020-07-23 11:30] VITALS: BP 120/68
[2020-07-23 11:44] VITALS: BP 118/74
[2020-07-23 12:00] VITALS: BP 108/68
--- NOTE | 2020-07-23 17:57 | CARD ---
[address] [address] CARDIAC CATH REPORT Name: ANUP GALVEZ Room: [facility].#: [id number] Admission: 07/23/20 Attend Phys: Gerald Queen MD, F Discharge: Date of : 46 Report #: [id number] THIS REPORT FOR: cc: Dash Avila MD, William MD Blick,Gerald Davenport MD [facility] ~ APPROVED REPORT Study performed: 07/23/2020 08:54:25 Patient Details Patient Status: Out-Patient Room #: The patient is a 69 year-old male Event Personnel Gerald Queen School Bus Driver/Custodian, Surekha Mcnulty RN Ignition Mechanic, Belen Guaman RTR Scrub, Estefania Pelletier RTR Monitor Procedures Performed Art Access - R femoral artery, Coronaries Angiography and Bypass Grafts CORCABG, Supravalvular Aortography Injection , ISVA, Hemostasis w/ Mynx Indication Chest pain Risk Factors Arterial Hypertension, Hypercholesterolemia, Coronary Artery Disease, Tobacco History () Previous Procedures/Diagnoses Previous CABG, Previous Valve Surgery, Previous [place] Admission/Lab Medications/Medications given during procedure Aspirin PO 325 mg Procedure Narrative The patient was brought electively to the Cardiac Catheterization Laboratory and was prepped and draped in a sterile manner. The right femoral was infiltrated with 2% Lidocaine subcutaneous anesthesia. IV conscious sedation was used throughout procedure with appropriate monitoring and was performed in the presence of a registered nurse who was an independent trained observer [place] [address] CARDIAC CATH REPORT Name: ANUP GALVEZ Room: [facility]#: [id number] Admission: 07/23/20 Attend Phys: Gerald Queen MD, F Discharge: Date of : 46 Report #: [id number] performing the procedure. A 6fr Ultimum sheath was inserted into the right femoral artery. Coronary angiography was performed using coronary diagnostic catheters. The right coronary system was accessed and visualized with a 6F JR4 catheter. The left coronary system was accessed and visualized with a 6F JL4 catheter. An aortogram of the ascending aorta was performed. Closure device was deployed with a 6 Fr Mynx. The patient tolerated the procedure well and there were no complications associated with the procedure. There was no hematoma. The saphenous vein graft to the diagonal artery and MCINTYRE were visualized with a 6F JR4 catheter. SVG to the RCA was visualized with a 5 FR right SVG catheter. Intraoperative Conscious Sedation Sedation start time: 10:01 Case end Time: 10:40 Versed 2 mg Fluoro Time: 3.5 minutes Dose: DAP 46766 cGycm2 1115 mGy Contrast Type and Amount: Omnipaque 210 ml Coronary Angiography The patient's coronary anatomy is right dominant. [place] Artery Percent Stenosis Grafts (Complete if Previous CABG=Yes: Percent Stenosis) Flush injection of the left subclavian artery appearred to show that the MCINTYRE was not used as a bypass graft conduit. SVG to the second diagonal artery appeared to be patent with 0% stenosis. SVG to the PDA branch of the distal RCA had 0% stenosis. Diagnostic Cath Left Main Distal 90% stenosis noted. LAD Stent in the proximal and mid LAD had 0% restenosis. Diagonal 2 Appeared chronically occluded proximally. Circumflex 99% ostial stenosis. Stent in the mid circumflex had a 80% restenosis. Right Coronary 90% mid stenosis Left Ventriculography Left Ventriculography was not performed. Aortic root injection with the pigtail catheter showed [place] [address] CARDIAC CATH REPORT Name: ANUP GALVEZ Room: [facility]#: [id number] Admission: 07/23/20 Attend Phys: Gerald Queen MD, F Discharge: Date of : 46 Report #: [id number] Hemodynamics The aortic pressure is 100/63 mmHg with a mean of 79 mmHg. Conclusion 1. 90% stenosis of the distal left main artery. 2. Stents in the proximal and mid LAD had 0% restenosis. 3. 99% ostial stenosis of the circumflex and 80% restenosis of the stent in the mid circumflex. 4. Patent SVG to a small diagonal branch of the LAD, although there was no significant retrograde flow into the LAD. 5. Patent SVG to the PDA branch of the distal RCA. Recommendations Refer for consideration of high risk PTCA and stenting of the left main and ostial circumflex. <ELECTRONICALLY SIGNED> By: Gerald Queen MD, [facility] 07/23/201755 55 55Dawilner Queen MD, [facility] /INF
== END | disposition home or self-care (01) ==
LOC: M.CL 07-21 10:30
PROVIDERS: ATTEND Internal Medicine Cardiovascular Disease
DX: R07.9 Chest pain, unspecified (principal); I25.10 Atherosclerotic heart disease of native coronary artery without angina pectoris; T82.855A Stenosis of coronary artery stent, initial encounter; I10 Essential (primary) hypertension; E78.00 Pure hypercholesterolemia, unspecified; I25.2 Old myocardial infarction; Z98.890 Other specified postprocedural states; Z79.899 Other long term (current) drug therapy; Z95.1 Presence of aortocoronary bypass graft; Y83.8 Other surgical procedures as the cause of abnormal reaction of the patient, or of later complication, without mention of misadventure at the time of the procedure

== ENCOUNTER → 2020-07-30 | Outpatient (CLI) | payer MEDICARE ==
[2020-07-30 11:11] LABS: ABSOLUTE EOSINOPHILS 0.1 thou/uL (0.0-0.7); ABSOLUTE LYMPHOCYTES 1.2 thou/uL (0.8-5.3); ABSOLUTE MONOCYTES 0.7 thou/uL (0.0-1.2); ABSOLUTE NEUTROPHILS 4.1 thou/uL (1.6-8.1); BASOPHILS 0.6 %; EOSINOPHILS 2.2 %; HEMATOCRIT 41.8 % (42.0-52.0); LYMPHOCYTES 19.6 %; MCH 29.6 pg (26.0-34.0); MCHC 33.6 g/dL (28.0-37.0); MCV 88.2 fL (80.0-100.0); MONOCYTES 10.8 %; NUCLEATED RBCS 0 /100WBC; PLATELET COUNT* 115 thou/uL (150-400); POLYS 66.8 %; RBC 4.73 mil/uL (4.50-6.00); WBC 6.2 thou/uL (4.0-11.0)
[2020-07-30 11:21] LABS: INR 1.2; PROTIME 12.3 Seconds (9.20-11.50)
[2020-07-30 11:27] LABS: CALCIUM 8.4 mg/dL (8.5-10.1); CREATININE 0.8 mg/dL (0.6-1.3); POTASSIUM 4.6 mmol/L (3.5-5.1)
== END ==
LOC: M.LAB 10:50
DX: Z01.812 Encounter for preprocedural laboratory examination (principal); I20.9 Angina pectoris, unspecified; I48.91 Unspecified atrial fibrillation; I10 Essential (primary) hypertension; E78.2 Mixed hyperlipidemia; E11.59 Type 2 diabetes mellitus with other circulatory complications; R06.00 Dyspnea, unspecified; Z95.1 Presence of aortocoronary bypass graft; Z95.2 Presence of prosthetic heart valve; Z95.5 Presence of coronary angioplasty implant and graft; Z79.01 Long term (current) use of anticoagulants

== ENCOUNTER → 2021-03-16 | Outpatient (CLI) | payer MEDICARE | LOC: M.LAB 10:17 | PROVIDERS: ATTEND Internal Medicine Cardiovascular Disease | DX: I48.91 Unspecified atrial fibrillation (principal); Z79.899 Other long term (current) drug therapy ==